=== PATIENT | male | born 1960 | race Caucasian/White ===

== ENCOUNTER 2021-03-04 18:21 | Inpatient (IN) | payer OTHER, MEDICAID ==
[~2021-03-04] VITALS: Ht 167.6 cm; Wt 83.9 kg
[2021-03-04 22:18] LABS: Basophils # (auto) 0.1 10 ^3/uL (0-0.2); Basophils % (auto) 0.6 % (0.0-2.0); Eosinophils # (auto) 0.3 10 ^3/uL (0-0.8); Hematocrit 52.7 % (41.0-53.0); Hemoglobin 17.9 g/dL (13.5-17.5); Lymphocytes # (auto) 2.4 10 ^3/uL (0.4-5.4); Lymphocytes % (auto) 18.2 % (10.0-50.0); Mean Corpuscular Hemoglobin 30.6 pg (28.0-32.0); Monocytes # (auto) 1.6 10 ^3/uL (0-1.3); Monocytes % (auto) 12.6 % (0.0-12.0); Neutrophils # (auto) 8.8 10 ^3/uL (1.6-8.6); Neutrophils % (auto) 66.6 % (37.0-80.0); Nucleated Red Blood Cells % 0.1 %; Red Blood Cells 5.86 10^6/uL (4.5-5.90); Red Cell Distribution Width 12.8 % (11.8-14.3); White Blood Cell 13.1 10^3/uL (4.4-10.8)
[2021-03-04 22:39] LABS: Albumin 3.5 g/dL (3.4-5.0); BUN/Creatinine Ratio 15.3; Calcium 9.2 mg/dL (8.5-10.1)
[2021-03-04 22:43] LABS: Bilirubin, Total 0.8 mg/dL (0.2-1.0); Total Protein 8.2 g/dL (6.4-8.2)
[2021-03-04] MEDS ORDERED: ASPirin 81 mg TAB PO ONE (23:15)
[2021-03-04] MEDS ORDERED: SODIUM CHLORIDE 0.9% 1,000 ML IVB ONE (23:15)
[2021-03-04] MEDS ORDERED: MORPHINE SULFATE 4 MG/ML SYR/VIAL IV ONE (23:30)
[2021-03-04] MEDS ORDERED: ONDANSETRON HCL 4 MG/2 ML VIAL IV ONE (23:30)
[2021-03-04] MEDS ORDERED: ENOXAPARIN SOD 80 MG/0.8ML SYRINGE SC ONE (23:30)
[2021-03-05] VITALS (14 sets, daily range): BP systolic 99–139; BP diastolic 63–96
[2021-03-05 00:16] LABS: INR 1.21 (0.9-1.15); Partial Thromboplastin Time 31.6 sec (23.6-33.0)
[2021-03-05] MEDS ORDERED: TEMAZEPAM 15 MG CAP PO PRN (03:30)
[2021-03-05] MEDS ORDERED: MORPHINE SULFATE INJECTION 2 MG/ML SYRG IV PRN (03:30)
[2021-03-05] MEDS ORDERED: ACETAMINOPHEN 325 MG TAB PO PRN (03:30)
[2021-03-05] MEDS ORDERED: NITROGLYCERIN 0.4 MG SL TAB SL PRN (03:30)
[2021-03-05] MEDS ORDERED: ONDANSETRON HCL 4 MG/2 ML VIAL IV PRN (03:30)
[2021-03-05] MEDS ORDERED: DEXTROSE (50%) 50ML SYRG IV PRN (03:30)
[2021-03-05] MEDS: ACCU-CHEK COMFORT CURVE STRIP VI SCH ×4 (08:01→21:46)
[2021-03-05] MEDS: InsuLIN REG 1unit/0.01ml Soln (100units/ml) SC SCH ×3 (08:42→21:45)
[2021-03-05] MEDS: buPROPion HCL 75 MG TAB PO SCH ×2 (08:42→19:01)
[2021-03-05] MEDS: CARVEDILOL 12.5 MG TAB PO SCH ×2 (08:42→21:44)
[2021-03-05] MEDS: ENOXAPARIN SOD 40 MG/0.4 ML SYRINGE SC SCH (08:43)
[2021-03-05] MEDS: LOSARTAN POTASSIUM 50 MG TAB PO SCH (08:43)
[2021-03-05] MEDS: PANTOPRAZOLE 40 MG TAB PO SCH (08:43)
[2021-03-05] MEDS ORDERED: ASPirin 81 mg TAB PO SCH (10:00)
[2021-03-05] MEDS ORDERED: NITROGLYCERIN 0.4 MG SL TAB SL ONE (10:00)
[2021-03-05] MEDS ORDERED: LIDOCAINE 2%HCL (LOCAL ANESTH.) INJ 20ML MDV ONE (12:18)
[2021-03-05] MEDS ORDERED: IOHEXOL 350 MG/ML 100ML IJ ONE (12:18)
[2021-03-05] MEDS ORDERED: ANGIOMAX 250 MG VIAL IV ONE (12:22)
[2021-03-05] MEDS ORDERED: HEPARIN SODIUM (PORCINE) 5000 UNITS/ML 1ML VIAL ONE (12:22)
[2021-03-05] MEDS ORDERED: VERAPAMIL 2.5MG/ML INJ 2ML VIAL IV ONE (12:23)
[2021-03-05] MEDS ORDERED: fentaNYL CITRATE 100 MCG/2 ML VL ONE (12:23)
[2021-03-05] MEDS ORDERED: MIDAZOLAM HCL 2MG/2ML 2ml VIAL (1mg/ml) ONE (12:23)
[2021-03-05] MEDS ORDERED: SODIUM CHL 0.9% 50 ML ONE (12:23)
[2021-03-05] MEDS ORDERED: IODIXANOL 320MG/ML 100ML BTL IV ONE (12:48)
[2021-03-05] MEDS ORDERED: CLOPIDOGREL 300 MG TAB ONE (13:13)
[2021-03-05] MEDS ORDERED: CHOL100029 PO (14:31)
[2021-03-05] MEDS ORDERED: IRBE150T49 PO (14:31)
[2021-03-05] MEDS ORDERED: METF-916 PO (14:31)
[2021-03-05] MEDS ORDERED: ASPI-543 PO (14:31)
[2021-03-05] MEDS ORDERED: LABE300T3 PO (14:31)
[2021-03-05] MEDS ORDERED: NICOTINE 21MG/24 HR TOPICAL PATCH TD ONE (15:30)
[2021-03-05 21:21] LABS: Urine Bacteria NONE SEEN /hpf (None Seen); Urine Blood Negative /uL (Negative); Urine Mucus FEW (None Seen); Urine WBC 1 /hpf (0 - 3)
[2021-03-05 21:24] LABS: Urine Specific Gravity > 1.050 (1.001-1.035)
[2021-03-05] MEDS ORDERED: ATORVASTATIN 20 MG TAB PO SCH ×2 (22:00)
[2021-03-06 05:00] VITALS: BP 122/72
[2021-03-06] MEDS: InsuLIN REG 1unit/0.01ml Soln (100units/ml) SC SCH ×2 (06:11→11:16)
[2021-03-06] MEDS: ACCU-CHEK COMFORT CURVE STRIP VI SCH ×2 (06:12→11:17)
[2021-03-06] MEDS: buPROPion HCL 75 MG TAB PO SCH (07:00)
[2021-03-06 07:12] LABS: Potassium 4.3 mmol/L (3.5-5.1)
[2021-03-06 07:14] LABS: Basophils # (auto) 0.1 10 ^3/uL (0-0.2); Basophils % (auto) 0.6 % (0.0-2.0); Eosinophils # (auto) 0.2 10 ^3/uL (0-0.8); Eosinophils % (auto) 1.8 % (0.0-7.0); Hemoglobin 16.5 g/dL (13.5-17.5); Lymphocytes # (auto) 2.6 10 ^3/uL (0.4-5.4); Lymphocytes % (auto) 24.3 % (10.0-50.0); Mean Corpuscular Hemoglobin 32.1 pg (28.0-32.0); Mean Corpuscular Volume 91.6 fL (80.0-100.0); Monocytes # (auto) 1.3 10 ^3/uL (0-1.3); Neutrophils # (auto) 6.5 10 ^3/uL (1.6-8.6); Neutrophils % (auto) 61.3 % (37.0-80.0); Nucleated Red Blood Cells % 0.1 %; Red Blood Cells 5.13 10^6/uL (4.5-5.90); Red Cell Distribution Width 13.4 % (11.8-14.3); White Blood Cell 10.6 10^3/uL (4.4-10.8)
[2021-03-06 07:25] LABS: Albumin 3.4 g/dL (3.4-5.0); BUN/Creatinine Ratio 16.2; Bilirubin, Total 1.2 mg/dL (0.2-1.0); Calcium 9.1 mg/dL (8.5-10.1); Total Protein 7.1 g/dL (6.4-8.2)
[2021-03-06] MEDS ORDERED: ATOR40TA52 PO (09:01)
[2021-03-06] MEDS ORDERED: CARV25TA PO (09:01)
[2021-03-06] MEDS ORDERED: CLOP75TA28 PO (09:01)
[2021-03-06] MEDS ORDERED: ASPirin 81 mg TAB PO SCH (10:00)
[2021-03-06] MEDS: LOSARTAN POTASSIUM 50 MG TAB PO SCH (10:00)
[2021-03-06] MEDS: CARVEDILOL 12.5 MG TAB PO SCH (10:00)
[2021-03-06] MEDS: PANTOPRAZOLE 40 MG TAB PO SCH (10:00)
[2021-03-06] MEDS: ENOXAPARIN SOD 40 MG/0.4 ML SYRINGE SC SCH (10:00)
[2021-03-06] MEDS ORDERED: NICOTINE 21MG/24 HR TOPICAL PATCH TD SCH (10:00)
[2021-03-06] MEDS ORDERED: CLOPIDOGREL BISULFATE 75 MG TAB PO SCH (10:00)
[2021-03-06 11:56] VITALS: BP 135/83
== END 2021-03-06 13:55 | disposition home or self-care (01) | DRG 247 ==
LOC: EDBD 18:21 → ER 18:24 → TELE 03-05 03:16 → TELE-WESTW 03-05 18:42
PROVIDERS: ADMIT Nurse Practitioner; ATTEND Internal Medicine
PROC: 027034Z Dilation of Coronary Artery, One Artery with Drug-eluting Intraluminal Device, Percutaneous Approach (ICD-10-PCS; principal; 2021-03-05)
PROC: 4A023N7 Measurement of Cardiac Sampling and Pressure, Left Heart, Percutaneous Approach (ICD-10-PCS; 2021-03-05)
PROC: B211YZZ Fluoroscopy of Multiple Coronary Arteries using Other Contrast (ICD-10-PCS; 2021-03-05)
PROC: B215YZZ Fluoroscopy of Left Heart using Other Contrast (ICD-10-PCS; 2021-03-05)
PROC: 4A033BC Measurement of Arterial Pressure, Coronary, Percutaneous Approach (ICD-10-PCS; 2021-03-05)
DX: I21.4 Non-ST elevation (NSTEMI) myocardial infarction (principal); E11.9 Type 2 diabetes mellitus without complications; I10 Essential (primary) hypertension; E78.5 Hyperlipidemia, unspecified; F12.90 Cannabis use, unspecified, uncomplicated; F17.210 Nicotine dependence, cigarettes, uncomplicated; H54.61 Unqualified visual loss, right eye, normal vision left eye; F41.9 Anxiety disorder, unspecified; F19.10 Other psychoactive substance abuse, uncomplicated; I25.10 Atherosclerotic heart disease of native coronary artery without angina pectoris; I25.5 Ischemic cardiomyopathy; Z79.82 Long term (current) use of aspirin; Z82.49 Family history of ischemic heart disease and other diseases of the circulatory system; Z98.61 Coronary angioplasty status; Z86.73 Personal history of transient ischemic attack (TIA), and cerebral infarction without residual deficits; Z20.822 Contact with and (suspected) exposure to COVID-19
CPT/HCPCS: 36415; 71045; 80053; 80061; 81001; 82962; 83036; 83735; 83880; 84443; 84484; 85025; 85379; 85610; 85730; 86850; 86900; 86901; 87426; 92928; 93005; 93306; 93458; 93571; 96361; 96374; 96375; 99152; C1874; G0378; J1815; J2250; J2405; Q9967

== ENCOUNTER 2021-08-17 07:50 | Inpatient (IN) | payer OTHER, MEDICAID ==
[~2021-08-17] VITALS: Ht 165.1 cm; Wt 77.0 kg
[~2021-08-17 07:50] MED LIST: ASPI-543 PO; ATOR40TA52 PO; CARV25TA PO; CHOL100029 PO; CLOP75TA28 PO; IRBE150T49 PO; METF-916 PO
[2021-08-17] MEDS ORDERED: methylPREDNISolone SOD SUCC 125 MG/2 ML VL IV ONE (08:45)
[2021-08-17] MEDS ORDERED: ALBUTEROL SULF 2.5 MG/0.5ML(0.5%) NEB SOLN NEB ONE (08:45)
[2021-08-17] MEDS ORDERED: IPRATROPIUM BROM 0.5 MG/2.5ML INH SOL NEB ONE (08:45)
[2021-08-17 09:08] LABS: Albumin 3.2 g/dL (3.4-5.0); Calcium 9.1 mg/dL (8.5-10.1); INR 1.18 (0.9-1.15); Potassium 4.8 mmol/L (3.5-5.1)
[2021-08-17 09:12] LABS: BUN/Creatinine Ratio 9.8; Bilirubin, Total 0.4 mg/dL (0.2-1.0)
[2021-08-17] MEDS ORDERED: AZITHROMYCIN 500MG/ 250ML 250 ML IV ONE (09:45)
[2021-08-17] MEDS ORDERED: FUROSEMIDE 40 MG/4 ML VIAL IV ONE (09:45)
[2021-08-17] MEDS ORDERED: cefTRIAXone 1GM/50ML D5W 50 ML IV ONE (09:45)
[2021-08-17 09:58] LABS: Basophils # (auto) 0.1 10 ^3/uL (0-0.2); Basophils % (auto) 0.5 % (0.0-2.0); Eosinophils # (auto) 0.4 10 ^3/uL (0-0.8); Eosinophils % (auto) 3.4 % (0.0-7.0); Hematocrit 45.2 % (41.0-53.0); Hemoglobin 14.9 g/dL (13.5-17.5); Lymphocytes # (auto) 4.6 10 ^3/uL (0.4-5.4); Lymphocytes % (auto) 39.2 % (10.0-50.0); Mean Corpuscular Hemoglobin 30.2 pg (28.0-32.0); Mean Corpuscular Hgb Conc. 32.9 g/dL (32.0-36.0); Mean Corpuscular Volume 91.9 fL (80.0-100.0); Monocytes # (auto) 0.8 10 ^3/uL (0-1.3); Monocytes % (auto) 6.6 % (0.0-12.0); Neutrophils # (auto) 5.9 10 ^3/uL (1.6-8.6); Neutrophils % (auto) 50.3 % (37.0-80.0); Nucleated Red Blood Cells % 0.4 %; Red Blood Cells 4.91 10^6/uL (4.5-5.90); Red Cell Distribution Width 15.4 % (11.8-14.3); White Blood Cell 11.7 10^3/uL (4.4-10.8)
[2021-08-17] MEDS ORDERED: IOHEXOL 350 MG/ML 100ML IJ ONE (10:35)
[2021-08-17 10:42] LABS: Lactic Acid w/Reflex 4.6 mmol/L (0.4-2.0)
[2021-08-17 11:40] LABS: Alcohol, Urine < 3.0 mg/dL (0-10); Amphetamine Screen, Urine NEGATIVE (NEGATIVE); Barbiturate Scree,Urine NEGATIVE (NEGATIVE); Benzodiazephine Screen, Urine NEGATIVE (NEGATIVE); Cannabinoid Screen, Urine NEGATIVE (NEGATIVE); Cocaine Screen, Urine NEGATIVE (NEGATIVE); Opiate Scree,Urine NEGATIVE (NEGATIVE); Phencyclidine Screen, Urine NEGATIVE (NEGATIVE)
[2021-08-17 12:01] LABS: Urine Bacteria NONE SEEN /hpf (None Seen); Urine Blood Negative /uL (Negative); Urine Specific Gravity 1.013 (1.001-1.035); Urine WBC 1 /hpf (0 - 3)
[2021-08-17] MEDS ORDERED: IPRATROPIUM BROM 0.5 MG/2.5ML INH SOL NEB PRN (12:15)
[2021-08-17] MEDS ORDERED: MORPHINE SULFATE INJECTION 2 MG/ML SYRG IV PRN (12:15)
[2021-08-17] MEDS ORDERED: ALBUTEROL SULF 2.5 MG/0.5ML(0.5%) NEB SOLN NEB PRN (12:15)
[2021-08-17] MEDS ORDERED: ONDANSETRON HCL 4 MG/2 ML VIAL IV PRN (12:15)
[2021-08-17] MEDS ORDERED: DEXTROSE (50%) 50ML SYRG IV PRN (12:15)
[2021-08-17] MEDS ORDERED: SODIUM CHLORIDE 0.9% 1,000 ML IV ONE (12:30)
[2021-08-17 12:44] LABS: Cholesterol 154 mg/dL (< 200)
[2021-08-17] MEDS ORDERED: ENOXAPARIN SOD 80 MG/0.8ML SYRINGE SC ONE (12:45)
[2021-08-17 12:47] LABS: HDL Cholesterol 69 mg/dL (40-59); LDL Cholesterol 59 mg/dL (< 100); Triglycerides 224 mg/dL (< 150)
[2021-08-17 13:42] LABS: INR 1.2 (0.9-1.15)
[2021-08-17 15:02] VITALS: BP 162/102
[2021-08-17 15:15] VITALS: BP 162/102
[2021-08-17] MEDS ORDERED: hydrALAZINE HCL 20 MG/ML VL IV PRN (15:30)
[2021-08-17 15:32] VITALS: BP 162/102
[2021-08-17] MEDS ORDERED: NITROGLYCERIN 0.4MG/HR TOPICAL PATCH TD ONE (16:00)
[2021-08-17] MEDS ORDERED: LABETALOL HCL 5 MG/ML 4ML SYRINGE IV ONE (16:00)
[2021-08-17] MEDS: InsuLIN REG 1unit/0.01ml Soln (100units/ml) SC SCH ×2 (17:05→21:59)
[2021-08-17] MEDS: ACCU-CHEK COMFORT CURVE STRIP VI SCH ×2 (17:05→21:46)
[2021-08-17 17:13] VITALS: BP 138/93
[2021-08-17] MEDS: metFORMIN HYDROCHLORIDE 500 MG TAB PO SCH (18:00)
[2021-08-17] MEDS: IPRATROPIUM BROM 0.5 MG/2.5ML INH SOL NEB SCH (18:09)
[2021-08-17] MEDS: ALBUTEROL SULF 2.5 MG/0.5ML(0.5%) NEB SOLN NEB SCH (18:09)
[2021-08-17] MEDS: methylPREDNISolone SOD SUCC 125 MG/2 ML VL IV SCH (21:51)
[2021-08-17] MEDS: ATORVASTATIN 20 MG TAB PO SCH (21:51)
[2021-08-17] MEDS: CARVEDILOL 12.5 MG TAB PO SCH (21:52)
[2021-08-17 22:00] VITALS: BP 134/87
[2021-08-18] VITALS (7 sets, daily range): BP systolic 112–140; BP diastolic 61–87
[2021-08-18] MEDS: ACCU-CHEK COMFORT CURVE STRIP VI SCH ×4 (05:49→21:45)
[2021-08-18] MEDS: InsuLIN REG 1unit/0.01ml Soln (100units/ml) SC SCH ×4 (05:49→21:45)
[2021-08-18] MEDS: IPRATROPIUM BROM 0.5 MG/2.5ML INH SOL NEB SCH ×3 (05:59→18:46)
[2021-08-18] MEDS: ALBUTEROL SULF 2.5 MG/0.5ML(0.5%) NEB SOLN NEB SCH ×3 (05:59→18:46)
[2021-08-18] MEDS: metFORMIN HYDROCHLORIDE 500 MG TAB PO SCH (08:06)
[2021-08-18] MEDS: cefTRIAXone 1GM/50ML D5W 50 ML IV SCH (08:06)
[2021-08-18] MEDS ORDERED: CLOPIDOGREL 300 MG TAB PO ONE (08:30)
[2021-08-18] MEDS ORDERED: CLOPIDOGREL BISULFATE 75 MG TAB PO SCH (10:00)
[2021-08-18] MEDS: ASPirin-EC 81 mg tab PO SCH (10:46)
[2021-08-18] MEDS: FUROSEMIDE 40 MG/4 ML VIAL IV SCH (10:46)
[2021-08-18] MEDS: ENOXAPARIN SOD 40 MG/0.4 ML SYRINGE SC SCH (10:47)
[2021-08-18] MEDS: CARVEDILOL 12.5 MG TAB PO SCH ×2 (10:47→21:41)
[2021-08-18] MEDS: AZITHROMYCIN 500MG/ 250ML 250 ML IV SCH (10:48)
[2021-08-18] MEDS: methylPREDNISolone SOD SUCC 125 MG/2 ML VL IV SCH (10:48)
[2021-08-18 13:36] LABS: Potassium 3.9 mmol/L (3.5-5.1)
[2021-08-18 13:38] LABS: BUN/Creatinine Ratio 14.5
[2021-08-18] MEDS: ATORVASTATIN 20 MG TAB PO SCH (21:40)
[2021-08-19] VITALS (15 sets, daily range): BP systolic 101–137; BP diastolic 62–75
[2021-08-19] MEDS: ALBUTEROL SULF 2.5 MG/0.5ML(0.5%) NEB SOLN NEB SCH ×3 (05:25→19:13)
[2021-08-19] MEDS: IPRATROPIUM BROM 0.5 MG/2.5ML INH SOL NEB SCH ×3 (05:25→19:13)
[2021-08-19 05:34] LABS: Basophils # (auto) 0 10 ^3/uL (0-0.2); Basophils % (auto) 0.2 % (0.0-2.0); Eosinophils # (auto) 0 10 ^3/uL (0-0.8); Hematocrit 38.7 % (41.0-53.0); Hemoglobin 12.9 g/dL (13.5-17.5); Lymphocytes # (auto) 0.9 10 ^3/uL (0.4-5.4); Lymphocytes % (auto) 6.1 % (10.0-50.0); Mean Corpuscular Hemoglobin 30.1 pg (28.0-32.0); Mean Corpuscular Hgb Conc. 33.3 g/dL (32.0-36.0); Mean Corpuscular Volume 90.3 fL (80.0-100.0); Monocytes # (auto) 0.8 10 ^3/uL (0-1.3); Monocytes % (auto) 5.3 % (0.0-12.0); Neutrophils # (auto) 13.2 10 ^3/uL (1.6-8.6); Neutrophils % (auto) 88.4 % (37.0-80.0); Red Blood Cells 4.29 10^6/uL (4.5-5.90); Red Cell Distribution Width 15.5 % (11.8-14.3)
[2021-08-19 05:47] LABS: INR 1.22 (0.9-1.15); Partial Thromboplastin Time 26.8 sec (23.6-33.0)
[2021-08-19 05:58] LABS: Calcium 9.4 mg/dL (8.5-10.1); Potassium 3.4 mmol/L (3.5-5.1)
[2021-08-19 06:01] LABS: BUN/Creatinine Ratio 20.2
[2021-08-19] MEDS: InsuLIN REG 1unit/0.01ml Soln (100units/ml) SC SCH ×4 (06:02→21:51)
[2021-08-19] MEDS: ACCU-CHEK COMFORT CURVE STRIP VI SCH ×4 (06:03→21:57)
[2021-08-19] MEDS: ASPirin-EC 81 mg tab PO SCH (09:15)
[2021-08-19] MEDS: CLOPIDOGREL BISULFATE 75 MG TAB PO SCH (09:15)
[2021-08-19] MEDS: CARVEDILOL 12.5 MG TAB PO SCH ×2 (09:16→21:44)
[2021-08-19] MEDS ORDERED: IODIXANOL 320MG/ML 100ML BTL IV ONE (09:45)
[2021-08-19] MEDS ORDERED: LIDOCAINE 2%HCL (LOCAL ANESTH.) INJ 10ml MDV ONE (09:45)
[2021-08-19] MEDS ORDERED: ANGIOMAX 250 MG VIAL IV ONE (09:56)
[2021-08-19] MEDS ORDERED: HEPARIN SODIUM (PORCINE) 5000 UNITS/ML 1ML VIAL ONE (09:57)
[2021-08-19] MEDS ORDERED: MIDAZOLAM HCL 2MG/2ML 2ml VIAL (1mg/ml) ONE (09:57)
[2021-08-19] MEDS ORDERED: VERAPAMIL 2.5MG/ML INJ 2ML VIAL IV ONE (09:57)
[2021-08-19] MEDS ORDERED: SODIUM CHL 0.9% 0 ML ONE (09:57)
[2021-08-19] MEDS ORDERED: fentaNYL CITRATE 100 MCG/2 ML VL ONE (09:57)
[2021-08-19] MEDS: FUROSEMIDE 40 MG/4 ML VIAL IV SCH (10:00)
[2021-08-19] MEDS: ENOXAPARIN SOD 40 MG/0.4 ML SYRINGE SC SCH (10:00)
[2021-08-19] MEDS: cefTRIAXone 1GM/50ML D5W 50 ML IV SCH (12:08)
[2021-08-19] MEDS: AZITHROMYCIN 500MG/ 250ML 250 ML IV SCH (12:43)
[2021-08-19] MEDS: ATORVASTATIN 20 MG TAB PO SCH (21:43)
[2021-08-20 04:58] VITALS: BP 110/78
[2021-08-20 05:28] LABS: Basophils # (auto) 0 10 ^3/uL (0-0.2); Basophils % (auto) 0.3 % (0.0-2.0); Eosinophils # (auto) 0.1 10 ^3/uL (0-0.8); Eosinophils % (auto) 0.8 % (0.0-7.0); Hematocrit 37.9 % (41.0-53.0); Hemoglobin 12.9 g/dL (13.5-17.5); Lymphocytes # (auto) 2.7 10 ^3/uL (0.4-5.4); Lymphocytes % (auto) 27.9 % (10.0-50.0); Mean Corpuscular Hemoglobin 30.8 pg (28.0-32.0); Mean Corpuscular Volume 90.7 fL (80.0-100.0); Monocytes # (auto) 0.9 10 ^3/uL (0-1.3); Monocytes % (auto) 9.4 % (0.0-12.0); Neutrophils # (auto) 5.9 10 ^3/uL (1.6-8.6); Neutrophils % (auto) 61.6 % (37.0-80.0); Nucleated Red Blood Cells % 0.1 %; Red Blood Cells 4.18 10^6/uL (4.5-5.90); Red Cell Distribution Width 15.9 % (11.8-14.3); White Blood Cell 9.5 10^3/uL (4.4-10.8)
[2021-08-20 05:44] LABS: Calcium 8.6 mg/dL (8.5-10.1)
[2021-08-20 05:47] LABS: BUN/Creatinine Ratio 27.9
[2021-08-20 05:49] LABS: Bilirubin, Total 0.4 mg/dL (0.2-1.0); Total Protein 6.6 g/dL (6.4-8.2)
[2021-08-20] MEDS: InsuLIN REG 1unit/0.01ml Soln (100units/ml) SC SCH ×2 (06:34→11:28)
[2021-08-20] MEDS: ACCU-CHEK COMFORT CURVE STRIP VI SCH ×2 (06:34→11:21)
[2021-08-20] MEDS: ALBUTEROL SULF 2.5 MG/0.5ML(0.5%) NEB SOLN NEB SCH ×2 (07:01→13:05)
[2021-08-20] MEDS: IPRATROPIUM BROM 0.5 MG/2.5ML INH SOL NEB SCH ×2 (07:01→13:05)
[2021-08-20 08:15] VITALS: BP 112/74
[2021-08-20 08:30] VITALS: BP 112/74
[2021-08-20] MEDS: cefTRIAXone 1GM/50ML D5W 50 ML IV SCH (08:37)
[2021-08-20] MEDS: CARVEDILOL 12.5 MG TAB PO SCH (09:56)
[2021-08-20] MEDS: ASPirin-EC 81 mg tab PO SCH (09:56)
[2021-08-20] MEDS: CLOPIDOGREL BISULFATE 75 MG TAB PO SCH (09:56)
[2021-08-20] MEDS: AZITHROMYCIN 500MG/ 250ML 250 ML IV SCH (09:56)
[2021-08-20] MEDS: FUROSEMIDE 40 MG/4 ML VIAL IV SCH (09:56)
[2021-08-20] MEDS: ENOXAPARIN SOD 40 MG/0.4 ML SYRINGE SC SCH (09:56)
[2021-08-20] MEDS ORDERED: LEVO750T64 PO (11:04)
[2021-08-20] MEDS ORDERED: FURO20TA3 PO (11:06)
[2021-08-20 12:10] VITALS: BP 106/67
[2021-08-20 12:51] VITALS: BP 106/67
== END 2021-08-20 14:05 | disposition home or self-care (01) | DRG 280 ==
LOC: EDBD 07:50 → ER 07:50 → EAST 11:21 → ER 14:40 → TELE-EAST 15:00
PROVIDERS: ADMIT Registered Nurse; ATTEND Internal Medicine
PROC: 5A09357 Assistance with Respiratory Ventilation, Less than 24 Consecutive Hours, Continuous Positive Airway Pressure (ICD-10-PCS; 2021-08-17)
PROC: B211YZZ Fluoroscopy of Multiple Coronary Arteries using Other Contrast (ICD-10-PCS; principal; 2021-08-19)
DX: I21.4 Non-ST elevation (NSTEMI) myocardial infarction (principal); J18.9 Pneumonia, unspecified organism; I50.43 Acute on chronic combined systolic (congestive) and diastolic (congestive) heart failure; J96.01 Acute respiratory failure with hypoxia; N17.9 Acute kidney failure, unspecified; F10.10 Alcohol abuse, uncomplicated; I25.10 Atherosclerotic heart disease of native coronary artery without angina pectoris; F32.A Depression, unspecified; E78.5 Hyperlipidemia, unspecified; Z20.822 Contact with and (suspected) exposure to COVID-19; I11.0 Hypertensive heart disease with heart failure; E11.9 Type 2 diabetes mellitus without complications; F41.9 Anxiety disorder, unspecified; F17.210 Nicotine dependence, cigarettes, uncomplicated; Z82.49 Family history of ischemic heart disease and other diseases of the circulatory system; Z83.3 Family history of diabetes mellitus; Z86.73 Personal history of transient ischemic attack (TIA), and cerebral infarction without residual deficits; Z91.19 Patient's noncompliance with other medical treatment and regimen
CPT/HCPCS: 36415; 36600; 71045; 71275; 80048; 80053; 80061; 80307; 80320; 81001; 82805; 82962; 83036; 83605; 83880; 84484; 85025; 85379; 85610; 85730; 87040; 87070; 87205; 93005; 93306; 93454; 94640; 94660; 96361; 96368; 96375; 99152; 99291; G0378; J0696; J1815; J2001; J2250; J3490; Q9967

== ENCOUNTER 2023-12-25 06:45 | Inpatient (IN) | payer MEDICARE, MEDICAID ==
[~2023-12-25] VITALS: Ht 170.2 cm; Wt 73.8 kg
[~2023-12-25 06:45] MED LIST changes: +CARV-217 PO; -CARV25TA PO; +FURO20TA3 PO; +LEVO750T40 PO; +METF-1145 PO; -METF-916 PO; +VENL150C58 PO
[2023-12-25 07:22] LABS: Basophils # (auto) 0 10 ^3/uL (0-0.2); Basophils % (auto) 0.5 % (0.0-2.0); Eosinophils # (auto) 0.2 10 ^3/uL (0-0.8); Eosinophils % (auto) 3.1 % (0.0-7.0); Hematocrit 43.6 % (41.0-53.0); Hemoglobin 14.9 g/dL (13.5-17.5); Lymphocytes # (auto) 1.6 10 ^3/uL (0.4-5.4); Lymphocytes % (auto) 20.1 % (10.0-50.0); Mean Corpuscular Hemoglobin 30.8 pg (28.0-32.0); Mean Corpuscular Hgb Conc. 34.1 g/dL (32.0-36.0); Mean Corpuscular Volume 90.3 fL (80.0-100.0); Monocytes # (auto) 0.7 10 ^3/uL (0-1.3); Monocytes % (auto) 9.1 % (0.0-12.0); Neutrophils # (auto) 5.4 10 ^3/uL (1.6-8.6); Neutrophils % (auto) 67.2 % (37.0-80.0); Platelet Count (auto) 344 10^3/uL (140-450); Red Blood Cells 4.82 10^6/uL (4.5-5.90); Red Cell Distribution Width 14.9 % (11.8-14.3)
[2023-12-25 07:25] VITALS: PULSE 74; RESP 18; O2SAT 95
[2023-12-25 07:51] LABS: Chloride 107 mmol/L (98-107); Potassium 4.9 mmol/L (3.5-5.1); Sodium 139 mmol/L (136-145)
[2023-12-25 07:52] LABS: Anion Gap 2 (5-15); Carbon Dioxide 30 mmol/L (20-30)
[2023-12-25 07:53] LABS: Calcium 9.6 mg/dL (8.7-10.4)
[2023-12-25 07:58] LABS: BUN/Creatinine Ratio 8.6 (10.0-20.0); Blood Urea Nitrogen 6 mg/dL (9-23); Glucose 128 mg/dL (74-106)
[2023-12-25] MEDS: ENOXAPARIN SOD 80 MG/0.8ML SYRINGE SC ONE (08:37)
[2023-12-25] MEDS: FUROSEMIDE 40 MG/4 ML VIAL IV ONE (08:37)
[2023-12-25] MEDS: IOHEXOL 350 MG/ML 100ML IJ ONE (08:55)
[2023-12-25] MEDS ORDERED: HYDROcodone-ACET 5/325MG TAB PO PRN (10:45)
[2023-12-25] MEDS ORDERED: HYDROmorphone HCL 2 MG/ML VL/or syr IV PRN (10:45)
[2023-12-25] MEDS ORDERED: DEXTROSE (50%) 50ML SYRG IV PRN (10:45)
[2023-12-25] MEDS ORDERED: ACETAMINOPHEN 325 MG TAB PO PRN (10:45)
[2023-12-25] MEDS ORDERED: ONDANSETRON HCL 4 MG/2 ML VIAL IV PRN (10:45)
[2023-12-25] MEDS ORDERED: DOCUSATE SOD 100 MG CAP PO PRN (10:45)
[2023-12-25] MEDS: PANTOPRAZOLE 40 MG/10 ML VIAL INJ IV SCH (10:50)
[2023-12-25] MEDS: cefTRIAXone 1GM/50ML D5W 50 ML IV SCH (10:50)
[2023-12-25] MEDS: ACCU-CHEK COMFORT CURVE STRIP VI SCH (11:21)
[2023-12-25] MEDS: InsuLIN REG 1unit/0.01ml Soln (100units/ml) SC SCH (11:21)
[2023-12-25] MEDS: AZITHROMYCIN 500MG/ 250ML 250 ML IV SCH (11:28)
[2023-12-25] MEDS: hydrALAZINE HCL 20 MG/ML VL IV PRN (11:45)
[2023-12-25] MEDS: SODIUM CHLOR 0.9% PF (SALINE LOCK) 10ML VIAL/SYR IV SCH (14:06)
[2023-12-25 17:45] VITALS: BP 165/90; PULSE 77; RESP 18; TEMP 98.1; O2SAT 96
[2023-12-25 18:13] VITALS: PULSE 82; RESP 18; O2SAT 96
[2023-12-25 18:15] VITALS: BP 165/90; PULSE 77; RESP 18; TEMP 98.1; O2SAT 96
[2023-12-25] MEDS: ATORVASTATIN 20 MG TAB PO SCH (18:35)
[2023-12-25] MEDS: FUROSEMIDE 40 MG/4 ML VIAL IV SCH (18:36)
[2023-12-25 20:00] VITALS: BP 152/77; PULSE 70; PULSE 74; PULSE 77; RESP 18; RESP 20; TEMP 98; O2SAT 95; O2SAT 98
[2023-12-25] MEDS: CARVEDILOL 12.5 MG TAB PO SCH (22:17)
[2023-12-26] VITALS (8 sets, daily range): BP systolic 111–154; BP diastolic 63–86; PULSE 66–77; RESP 15–20; TEMP 97.8–98.2; O2SAT 94–98
[2023-12-26 06:35] LABS: Basophils # (auto) 0 10 ^3/uL (0-0.2); Basophils % (auto) 0.4 % (0.0-2.0); Eosinophils # (auto) 0.2 10 ^3/uL (0-0.8); Eosinophils % (auto) 2.6 % (0.0-7.0); Hematocrit 49.7 % (41.0-53.0); Lymphocytes # (auto) 2.3 10 ^3/uL (0.4-5.4); Lymphocytes % (auto) 24.9 % (10.0-50.0); Mean Corpuscular Hemoglobin 30.6 pg (28.0-32.0); Mean Corpuscular Hgb Conc. 34.2 g/dL (32.0-36.0); Mean Corpuscular Volume 89.5 fL (80.0-100.0); Monocytes % (auto) 10.6 % (0.0-12.0); Neutrophils # (auto) 5.6 10 ^3/uL (1.6-8.6); Neutrophils % (auto) 61.5 % (37.0-80.0); Nucleated Red Blood Cells % 0.1 %; Platelet Count (auto) 377 10^3/uL (140-450); Red Blood Cells 5.55 10^6/uL (4.5-5.90); Red Cell Distribution Width 14.9 % (11.8-14.3); White Blood Cell 9.1 10^3/uL (4.4-10.8)
[2023-12-26 06:44] LABS: Alanine Aminotransferase 20 U/L (7-40); Albumin 4.6 g/dL (3.2-4.8); Alkaline Phosphatase 129 U/L (46-116); Anion Gap 10 (5-15); Aspartate Aminotransferase 20 U/L (13-40); Blood Urea Nitrogen 10 mg/dL (9-23); Calcium 10.6 mg/dL (8.7-10.4); Carbon Dioxide 31 mmol/L (20-30); Chloride 98 mmol/L (98-107); Glucose 136 mg/dL (74-106); Potassium 3.9 mmol/L (3.5-5.1); Sodium 139 mmol/L (136-145)
[2023-12-26 06:45] LABS: Bilirubin, Total 0.9 mg/dL (0.2-1.0)
[2023-12-26] MEDS: CHOLECALCIFEROL (VITD3) 1,000UNIT=25mCg TAB PO SCH (10:40)
[2023-12-26] MEDS: ASPirin-EC 81 mg tab PO SCH (10:41)
[2023-12-26] MEDS: LOSARTAN POTASSIUM 50 MG TAB PO SCH (10:41)
[2023-12-26] MEDS: CLOPIDOGREL BISULFATE 75 MG TAB PO SCH (10:41)
[2023-12-26] MEDS: ENOXAPARIN SOD 40 MG/0.4 ML SYRINGE SC SCH (10:42)
[2023-12-26 11:35] LABS: Triglycerides 132 mg/dL (< 150)
[2023-12-26 11:36] LABS: LDL Cholesterol 70 mg/dL (< 100)
[2023-12-26 11:37] LABS: Cholesterol 135 mg/dL (< 200); HDL Cholesterol 41 mg/dL (40-59)
[2023-12-26] MEDS: SACUBITRIL-VALSARTAN 24mg/26mg TAB PO SCH (21:39)
[2023-12-27] VITALS (9 sets, daily range): BP systolic 105–140; BP diastolic 70–86; PULSE 61–88; RESP 15–20; TEMP 97.3–98.1; O2SAT 95–97
[2023-12-27 07:00] LABS: Basophils # (auto) 0 10 ^3/uL (0-0.2); Basophils % (auto) 0.5 % (0.0-2.0); Eosinophils # (auto) 0.3 10 ^3/uL (0-0.8); Eosinophils % (auto) 2.9 % (0.0-7.0); Hematocrit 49.2 % (41.0-53.0); Hemoglobin 17.1 g/dL (13.5-17.5); Lymphocytes # (auto) 2.6 10 ^3/uL (0.4-5.4); Lymphocytes % (auto) 29.7 % (10.0-50.0); Mean Corpuscular Hemoglobin 30.9 pg (28.0-32.0); Mean Corpuscular Hgb Conc. 34.8 g/dL (32.0-36.0); Mean Corpuscular Volume 88.9 fL (80.0-100.0); Monocytes % (auto) 11.2 % (0.0-12.0); Neutrophils % (auto) 55.7 % (37.0-80.0); Nucleated Red Blood Cells % 0.2 %; Platelet Count (auto) 368 10^3/uL (140-450); Red Blood Cells 5.54 10^6/uL (4.5-5.90); Red Cell Distribution Width 14.3 % (11.8-14.3); White Blood Cell 8.9 10^3/uL (4.4-10.8)
[2023-12-27 07:08] LABS: Alanine Aminotransferase 20 U/L (7-40); Alkaline Phosphatase 110 U/L (46-116); Anion Gap 9 (5-15); BUN/Creatinine Ratio 16.9 (10.0-20.0); Blood Urea Nitrogen 14 mg/dL (9-23); Calcium 9.9 mg/dL (8.7-10.4); Carbon Dioxide 30 mmol/L (20-30); Chloride 97 mmol/L (98-107); Glucose 132 mg/dL (74-106); Potassium 3.6 mmol/L (3.5-5.1); Sodium 136 mmol/L (136-145)
[2023-12-27 07:09] LABS: Albumin 4.4 g/dL (3.2-4.8); Aspartate Aminotransferase 23 U/L (13-40); Bilirubin, Total 0.7 mg/dL (0.2-1.0); Total Protein 7.5 g/dL (5.7-8.2)
[2023-12-27 09:09] LABS: Hepatitis B Surface Antigen Negative (Negative)
[2023-12-27 09:30] LABS: Hepatitis A Ab IgM Negative; Hepatitis B Core IgM Negative
[2023-12-27 09:31] LABS: Hepatitis C Antibody Negative (Negative)
[2023-12-27] MEDS ORDERED: SACU1TAB PO (10:22)
[2023-12-27] MEDS ORDERED: AZIT-43 PO (10:22)
[2023-12-27] MEDS ORDERED: CARV-216 PO (10:22)
[2023-12-27] MEDS ORDERED: SPIR25TA PO (10:22)
[2023-12-27] MEDS ORDERED: EMPA1TAB PO (10:22)
[2023-12-27] MEDS: SPIRONOLACTONE 25 MG TAB PO ONE (11:34)
[2023-12-28] VITALS (9 sets, daily range): BP systolic 103–126; BP diastolic 68–77; PULSE 63–81; RESP 15–18; TEMP 97.7–98.4; O2SAT 93–96
[2023-12-28 05:36] LABS: Rapid Influenza A Negative (Negative); Rapid Influenza B Negative (Negative)
[2023-12-28 05:43] LABS: COVID19 ANTIGEN SOFIA FIA NEGATIVE (NEGATIVE)
[2023-12-28 06:10] LABS: Basophils # (auto) 0.1 10 ^3/uL (0-0.2); Eosinophils # (auto) 0.3 10 ^3/uL (0-0.8); Monocytes # (auto) 1.1 10 ^3/uL (0-1.3); Neutrophils # (auto) 5.3 10 ^3/uL (1.6-8.6); Nucleated Red Blood Cells % 0.1 %; Red Cell Distribution Width 14.4 % (11.8-14.3)
[2023-12-28 06:12] LABS: Basophils % (auto) 1.1 % (0.0-2.0); Eosinophils % (auto) 2.9 % (0.0-7.0); Hemoglobin 17.6 g/dL (13.5-17.5); Lymphocytes # (auto) 2.9 10 ^3/uL (0.4-5.4); Lymphocytes % (auto) 29.5 % (10.0-50.0); Mean Corpuscular Hemoglobin 30.9 pg (28.0-32.0); Mean Corpuscular Hgb Conc. 35.1 g/dL (32.0-36.0); Monocytes % (auto) 11.6 % (0.0-12.0); Neutrophils % (auto) 54.9 % (37.0-80.0); Platelet Count (auto) 349 10^3/uL (140-450); Red Blood Cells 5.69 10^6/uL (4.5-5.90); White Blood Cell 9.7 10^3/uL (4.4-10.8)
[2023-12-28 06:16] LABS: Alanine Aminotransferase 23 U/L (7-40); Albumin 4.1 g/dL (3.2-4.8); Alkaline Phosphatase 105 U/L (46-116); Anion Gap 8 (5-15); Aspartate Aminotransferase 24 U/L (13-40); BUN/Creatinine Ratio 16.3 (10.0-20.0); Bilirubin, Total 0.7 mg/dL (0.2-1.0); Blood Urea Nitrogen 14 mg/dL (9-23); Calcium 10.1 mg/dL (8.7-10.4); Carbon Dioxide 25 mmol/L (20-30); Chloride 101 mmol/L (98-107); Glucose 134 mg/dL (74-106); Potassium 3.7 mmol/L (3.5-5.1); Sodium 134 mmol/L (136-145); Total Protein 7.2 g/dL (5.7-8.2)
[2023-12-28 07:21] LABS: Urine Bacteria None Seen /hpf (None Seen)
[2023-12-28 07:37] LABS: Urine Blood Negative /uL (Negative); Urine Clarity Clear (Clear); Urine Color Light-Yellow (Yellow); Urine Hyaline Cast FEW /lpf (0 - 2); Urine Protein, UAD Negative (Negative); Urine Specific Gravity 1.011 (1.001-1.035); Urine Urobilinogen Normal (Negative); Urine WBC <1 /hpf (0 - 3); Urine pH 6.5 (5.0-9.0)
[2023-12-28 07:51] LABS: Amphetamine Screen, Urine Neg (NEGATIVE); Barbiturate Scree,Urine Neg (NEGATIVE); Benzodiazephine Screen, Urine Neg (NEGATIVE); Cocaine Screen, Urine Neg (NEGATIVE); Opiate Scree,Urine Neg (NEGATIVE); Phencyclidine Screen, Urine Neg (NEGATIVE)
[2023-12-28 07:52] LABS: Cannabinoid Screen, Urine Neg (NEGATIVE)
[2023-12-28] MEDS ORDERED: REGADENOSON 0.4 MG/5 ML SYRG IV ONE (09:23)
[2023-12-28] MEDS: REGADENOSON 0.4 MG/5 ML SYRG IV ONE (09:51)
[2023-12-28] MEDS: SPIRONOLACTONE 25 MG TAB PO SCH (11:36)
[2023-12-28] MEDS: EMPAGLIFLOZIN 10 MG TAB PO SCH (11:38)
== END 2023-12-28 20:50 | disposition home or self-care (01) | DRG 177 ==
LOC: ER 06:45 → EDBD 06:45 → EDUNIT# 06:45 → TELE 10:46 → TELE-CENTR 17:41
PROVIDERS: ADMIT Internal Medicine Pulmonary Disease; ATTEND Emergency Medicine
DX: J15.69 Pneumonia due to other Gram-negative bacteria (principal); I50.23 Acute on chronic systolic (congestive) heart failure; J96.01 Acute respiratory failure with hypoxia; I11.0 Hypertensive heart disease with heart failure; J15.9 Unspecified bacterial pneumonia; E11.65 Type 2 diabetes mellitus with hyperglycemia; I25.9 Chronic ischemic heart disease, unspecified; I49.3 Ventricular premature depolarization; Z20.822 Contact with and (suspected) exposure to COVID-19; F41.9 Anxiety disorder, unspecified; F17.210 Nicotine dependence, cigarettes, uncomplicated; E78.5 Hyperlipidemia, unspecified; I25.5 Ischemic cardiomyopathy; Z86.73 Personal history of transient ischemic attack (TIA), and cerebral infarction without residual deficits; Z83.3 Family history of diabetes mellitus; Z82.49 Family history of ischemic heart disease and other diseases of the circulatory system; Z98.61 Coronary angioplasty status; Z79.82 Long term (current) use of aspirin; Z79.899 Other long term (current) drug therapy; I16.0 Hypertensive urgency
CPT/HCPCS: 36415; 71045; 71275; 76705; 78452; 80048; 80053; 80061; 80074; 80307; 81001; 82962; 83036; 83735; 83880; 84443; 84484; 85025; 85379; 87040; 87426; 87804; 93005; 93017; 93306; 93970; 99291; G0378; J1815; J2470

== ENCOUNTER 2024-08-30 20:08 | Inpatient (IN) | payer MEDICAID, MEDICARE ==
[~2024-08-30] VITALS: Ht 170.2 cm; Wt 77.5 kg
[~2024-08-30 20:08] MED LIST changes: +AZIT-43 PO; +CARV-216 PO; -CARV-217 PO; +CARV6.2551 PO; +CLOP75TA70 PO; +EMPA1TAB PO; +FURO20TA4 PO; -IRBE150T49 PO; -LEVO750T40 PO; +SACU1TAB PO; +SPIR25TA PO
--- NOTE | 2024-08-30 20:16 | ED.PDOC ---
SOB-HPI HPI Comments 64 year old male presents to the ED via EMS presents to the ED with a chief complaint of shortness of breath onset today (08/30/24). Per EMS, patient was experiencing shortness of breath, chest pain, rates pain 6/10, O2 sat was 70% RA, given breathing treatment, placed on C-PAP, O2 increased to 96%. HR was 120, BP 175/103. PMHx COPD, DM, HTN, CVA, anxiety. Denies fever, chills, abdominal pain, nausea, vomiting, diarrhea. No other symptoms or modifying factors present at this time. Time Seen by MD: 20:10 Primary Care Provider: DELLA Reviewed notes: Medications, Allergies Information Source: Patient, Emergency Med Personnel Mode of Arrival: EMS Severity: Moderate Timing: Hours Duration: Since onset Context: At Rest PE Risk Factors: None History of: COPD, Anxiety Prehospital treatment: 12 Lead EKG, Breathing Tx, C-Pap Modifying Factors: Nothing Associated Signs and Symptoms: Chest Pain Quality: Sharp Radiation: No Radiation Location: Chest (L) Past Medical History PAST MEDICAL HISTORY: Anxiety, COPD, CVA, DM, HTN Surgical History: PTCA Family History Family History: Family hx of heart miroslava Social History Smoker: Cigarettes Alcohol: Occasionally Drugs: Marijuana Lives In: Home Constitutional: denies: chills, diaphoresis, fatigue, fever, malaise, sweats, weakness, others EENTM: denies: blurred vision, double vision, ear bleeding, ear discharge, ear drainage, ear pain, ear ringing, eye pain, eye redness, hearing loss, mouth pain, mouth swelling, nasal discharge, nose bleeding, nose congestion, nose pain, photophobia, tearing, throat pain, throat swelling, voice changes, others Respiratory: reports: shortness of breath; denies: cough, hemoptysis, orthopnea, SOB at rest, SOB with excertion, stridor, wheezing, others Cardiovascular: reports: chest pain; denies: dizzy spells, diaphoresis, Dyspnea on exertion, edema, irregular heart beat, left arm pain, lightheadedness, palpitations, PND, syncope, others Gastrointestinal: denies: abdomen distended, abdominal pain, blood streaked bowels, constipated, diarrhea, dysphagia, difficulty swallowing, hematemesis, melena, nausea, poor appetite, poor fluid intake, rectal bleeding, rectal pain, vomiting, others Genitourinary: denies: burning, dysuria, flank pain, frequency, hematuria, incontinence, penile discharge, penile sore, pain, testicle pain, testicle swelling, urgency, others Neurological: denies: dizziness, fainting, headache, left sided numbness, left sided weakness, numbness, paresthesia, pre-existing deficit, right sided numbness, right sided weakness, seizure, speech problems, tingling, tremors, weakness, others Musculoskeletal: denies: back pain, gout, joint pain, joint swelling, muscle pain, muscle stiffness, neck pain, others Integumetry: denies: bruises, change in color, change in hair/nails, dryness, laceration, lesions, lumps, rash, wounds, others Allergic/Immunocompromised: denies: Difficulty Healing, Frequent Infections, Hives, Itching, others Hematologic/Lymphatic: denies: anemia, blood clots, easy bleeding, easy bruising, swollen glands, others Endocrine: denies: excessive hunger, excessive sweating, excessive thirst, excessive urination, flushing, intolerance to cold, intolerance to heat, unexplained weight gain, unexplained weight loss, others Psychiatric: denies: anxiety, bipolar disorder, depression, hopeless, panic disorder, schizophrenia, sleepless, suicidal, others All Other Systems: Reviewed and Negative Physical Exam General Appearance: No Apparent Distress, Normal HEENT: Normal ENT Inspection, Pharynx Normal, TMs Normal Neck: Full Range of Motion, Non-Tender, Normal, Normal Inspection Respiratory: Chest Non-Tender, Lungs Clear, No Accessory Muscle Use, No Resp iratory Distress, Normal Breath Sounds Cardiovascular: No Edema, No JVD, No Murmur, No Gallop, Normal Peripheral Pulses, Regular Rate/Rhythm Breast Exam: Deferred Gastrointestinal: No Organomegaly, Non Tender, No Pulsatile Mass, Normal Bowel Sounds, Soft Genitalia: Deferred Pelvic: Deferred Rectal: Deferred Extremities: No calf tenderness, Normal capillary refill, Normal inspection, Normal range of motion, Non-tender, No pedal edema Musculoskeletal : Apperance: Normal Neurologic: Alert, school counsellor II-XII nml as Tested, No Motor Deficits, Normal Affect, Normal Mood, No Sensory Deficits Cerebellar Function: Normal Reflexes: Normal Skin: Dry, Normal Color, Warm Lymphatic: No Adenopathy Was a procedure done? Was a procedure done?: No Differential Dx Differential Diagnosis: CHF, COPD, Hypertension, Myocardial infarction, Pneumonia, URI X-Ray, Labs, Meds, VS Vital Signs Date Time Temp Pulse Resp B/P (MAP) Pulse Ox O2 Delivery O2 Flow Rate FiO2 08/30/24 20:24 109 08/30/24 20:10 97.0 120 28 175/103 (127) 96 97.0 08/30/24 20:10 96 Bi-Pap+ 20 100 100 Lab Test 08/30/24 21:23 08/30/24 20:35 Range/Units Troponin I High Sensitivity Pending 110 *H </=54 ng/L White Blood Count 12.9 H 4.4-10.8 10^3/uL Red Blood Count 5.32 4.5-5.90 10^6/uL Hemoglobin 16.7 13.5-17.5 g/dL Hematocrit 49.9 41.0-53.0 % Mean Corpuscular Volume 93.7 80.0-100.0 fL Mean Corpuscular Hemoglobin 31.3 28.0-32.0 pg Mean Corpuscular Hemoglobin Concent 33.5 32.0-36.0 g/dL Red Cell Distribution Width 13.8 11.8-14.3 % Platelet Count 248 140-450 10^3/uL Mean Platelet Volume 10.0 6.9-10.8 fL Neutrophils (%) (Auto) 74.9 37.0-80.0 % Lymphocytes (%) (Auto) 16.4 10.0-50.0 % Monocytes (%) (Auto) 6.9 0.0-12.0 % Eosinophils (%) (Auto) 1.3 0.0-7.0 % Basophils (%) (Auto) 0.5 0.0-2.0 % Neutrophils # (Auto) 9.7 H 1.6-8.6 10 ^3/uL Lymphocytes # (Auto) 2.1 0.4-5.4 10 ^3/uL Monocytes # (Auto) 0.9 0-1.3 10 ^3/uL Eosinophils # (Auto) 0.2 0-0.8 10 ^3/uL Basophils # (Auto) 0.1 0-0.2 10 ^3/uL Nucleated Red Blood Cells 0.2 % Sodium Level 141 136-145 mmol/L Potassium Level 3.5 3.5-5.1 mmol/L Chloride Level 105 98-107 mmol/L Carbon Dioxide Level 26 20-31 mmol/L Anion Gap 10 5-15 Blood Urea Nitrogen 8 L 9-23 mg/dL Creatinine 1.11 0.700-1.30 mg/dL Glomerular Filtration Rate Calc 74 >90 mL/min BUN/Creatinine Ratio 7.2 L 10.0-20.0 Serum Glucose 226 H 74-106 mg/dL Calcium Level 9.7 8.7-10.4 mg/dL B-Type Natriuretic Peptide 751.51 0-100 pg/mL [facility] [id number] [place] [address] Ph: [phone] DIAGNOSTIC IMAGING Diagnostic Imaging Report : [id number] Signed PATIENT: TORI MCCONNELL ACCT: [id number] UNIT: [id number] : 1960 LOC: ER ROOM / BED: / AGE / SEX: 64 / M ADM STATUS: REG ER SERVICE 14 ORDERING PHYSICIAN: JASEN SMITH MD PROCEDURE(s): CXRP - CHEST PORTABLE REASON: sob ORDER NUMBER(s): [id number], ACCESSION NUMBER(s): [id number] CHEST RADIOGRAPH Indication: sob Technique: Single frontal view of the chest was obtained Comparison: XY CHEST PORTABLE on DOS: 12/25/23, CHEST XRAY 1 VIEW on DOS: 08/20/21, CXR1 on DOS: 08/20/21 FINDINGS: Lines and Tubes: None Lungs: Diffuse interstitial prominence. Hyperinflation of the lungs. Pleura: No effusion. No pneumothorax. Cardiomediastinal contours: Heart size is within normal limits with mild atherosclerotic calcification and uncoiling of the aorta. Bones: No acute osseous abnormality. IMPRESSION: Pulmonary vascular congestion. Underlying bilateral lower lung zone infectious process can not be excluded. ATED BY: KAROLINA BERTRAND DO DICTATED DATE/TIME: 08/30/242057 SIGNED BY: KAROLINA BERTRAND DO SIGNED DATE/TIME: 08/30/242057 CC: Time of 1ST Reevaluation: 20:40 Reevaluation 1ST: Unchanged Patient Education/Counseling: Diagnosis, Treatment, Prognosis Family Education/Counseling: No Family Present Additional Information The following tests were ordered, and results were reviewed by me: BNP, BMP, CBC, TROP -x3, EKG, XY CHEST Additional Information was gathered from interviewing the following independent historians: EMS I reviewed and agreed with the following test results read by other providers: XY CHEST I discussed treatment and results with medical personnel and: patient Comprehensive systems review obtained and negative except for what is stated in the HPI. Departure 1 Departure Time of Disposition: 21:53 (Patient presented with shortness of breath that was concerning for possible STEMI, ACS, CHF, PE, Pneumonia, Muscle Strain, COPD, Dissection. Data: 1. I ordered and reviewed the result of at least 3 labs in cluding a CBC, BMP, and Troponin. 2. I independently interpreted the following tests: EKG which shows left ventricular hypertrophy and Chest X-ray which shows pulmonary vascular congestion.Risk:This patient has a high risk of morbidity due to further diagnostic testing or treatment and may suffer from an acute cardiac or respiratory disorder. Workup reveals likely an acute on chronic CHF exacerbation and patient should be admitted for further workup and possible expert consultation. ) Impression: Primary Impression: Acute on chronic systolic (congestive) heart failure Additional Impression: Acute respiratory distress Disposition: ADMITTED INPATIENT Admit to: Tele Condition: Guarded Critical Care Note Critical Care Time?: Yes Critical care comment: Acute respiratory distress Authorized and Performed by: Jasen Smith MD Total critical care time: Approximately 48 minutes Due to a high probability of clinically significant, life threatening deterioration, the patient required my highest level of preparedness to intervene emergently and I personally spent this critical care time directly and personally managing the patient. This critical care time included obtaining a history; examining the patient; pulse oximetry; ordering and review of studies; arranging urgent treatment with development of a management plan; evaluation of patient's response to treatment; frequent reassessment; and, discussions with other providers. This critical care time was performed to assess and manage the high probability of imminent, life-threatening deterioration that could result in multi-organ failure. It was exclusive of separately billable procedures and treating other patients and teaching time. Please see my other sections and the rest of the note for further information on patient assessment and treatment. Stability Stability form required: No Heart Score Heart Score: Heart Score Response (Comments) Value History Moderate Suspicious 1 EKG Repolarization Disturb 1 Age >65 2 Risk Factors >3 or Hx ASHD 2 Troponin >3 x's Normal limit 2 Total 8 I personally scribed for JASEN SMITH MD ([email or web address]) on 08/30/24 at 20:16. Electronically submitted by Arlyn Carlos ([email or web address]). I personally scribed for JASEN SMITH MD ([email or web address]) on 08/30/24 at 20:43. Electronically submitted by Arlyn aCrlos ([email or web address]). I personally scribed for JASEN SMITH MD ([email or web address]) on 08/30/24 at 21:16. Electronically submitted by Arlyn Carlos ([email or web address]). I personally scribed for JASEN SMITH MD ([email or web address]) on 08/30/24 at 21:35. Electronically submitted by Arlyn Carlos ([email or web address]). JASEN SMITH MD Aug 30, 2024 20:16
[2024-08-30 20:55] VITALS: PULSE 18; RESP 17; O2SAT 94
[2024-08-30 20:59] LABS: Basophils # (auto) 0.1 10 ^3/uL (0-0.2); Basophils % (auto) 0.5 % (0.0-2.0); Chloride 105 mmol/L (98-107); Eosinophils # (auto) 0.2 10 ^3/uL (0-0.8); Eosinophils % (auto) 1.3 % (0.0-7.0); Hematocrit 49.9 % (41.0-53.0); Hemoglobin 16.7 g/dL (13.5-17.5); Lymphocytes # (auto) 2.1 10 ^3/uL (0.4-5.4); Lymphocytes % (auto) 16.4 % (10.0-50.0); Mean Corpuscular Hemoglobin 31.3 pg (28.0-32.0); Mean Corpuscular Hgb Conc. 33.5 g/dL (32.0-36.0); Mean Corpuscular Volume 93.7 fL (80.0-100.0); Monocytes # (auto) 0.9 10 ^3/uL (0-1.3); Monocytes % (auto) 6.9 % (0.0-12.0); Neutrophils # (auto) 9.7 10 ^3/uL (1.6-8.6); Neutrophils % (auto) 74.9 % (37.0-80.0); Nucleated Red Blood Cells % 0.2 %; Platelet Count (auto) 248 10^3/uL (140-450); Red Blood Cells 5.32 10^6/uL (4.5-5.90); Red Cell Distribution Width 13.8 % (11.8-14.3); Sodium 141 mmol/L (136-145); White Blood Cell 12.9 10^3/uL (4.4-10.8)
[2024-08-30 21:00] LABS: Anion Gap 10 (5-15); Carbon Dioxide 26 mmol/L (20-31)
[2024-08-30 21:01] LABS: Calcium 9.7 mg/dL (8.7-10.4)
--- NOTE | 2024-08-30 21:01 | DVH ---
CHEST RADIOGRAPH Indication: sob Technique: Single frontal view of the chest was obtained Comparison: XY CHEST PORTABLE on DOS: 12/25/23, CHEST XRAY 1 VIEW on DOS: 08/20/21, CXR1 on DOS: 2 FINDINGS: Lines and Tubes: None Lungs: Diffuse interstitial prominence. Hyperinflation of the lungs. Pleura: No effusion. No pneumothorax. Cardiomediastinal contours: Heart size is within normal limits with mild atherosclerotic calcificatio n and uncoiling of the aorta. Bones: No acute osseous abnormality. IMPRESSION: Pulmonary vascular congestion. Underlying bilateral lower lung zone infectious process can not be exc luded.
[2024-08-30 21:06] LABS: BUN/Creatinine Ratio 7.2 (10.0-20.0)
[2024-08-30 21:38] LABS: Blood Urea Nitrogen 8 mg/dL (9-23); Glucose 226 mg/dL (74-106); Potassium 3.5 mmol/L (3.5-5.1)
[2024-08-30] MEDS: FUROSEMIDE 40 MG/4 ML VIAL IV ONE (22:00)
[2024-08-30] MEDS: CARVEDILOL 12.5 MG TAB PO ONE (22:30)
[2024-08-30] MEDS ORDERED: ONDANSETRON HCL 4 MG/2 ML VIAL IV PRN (22:30)
[2024-08-30] MEDS ORDERED: DEXTROSE (50%) 50ML SYRG IV PRN (22:30)
[2024-08-30] MEDS ORDERED: NITROGLYCERIN 0.4 MG SL TAB SL PRN (22:30)
--- NOTE | 2024-08-30 23:09 | DVHHP2 ---
History of Present Illness Reason for Visit: Shortness of the breath History of Present Illness 64-year-old male presents for evaluation of shortness for breath. Patient reports a one day history of worsening shortness for breath with associated chest tightness and a nonproductive cough. Patient reports becoming severely winded with minimal exertion. He reports not being able to lay flat. Denies fever or chills. No nausea or vomiting. No other acute complaints reported. Past Medical History Diabetes mellitus, hypertension, CVA, COPD, CHF Past Surgical History PTCA Family History Heart disease Smoke: <1 pack per day ALCOHOL: occassional Drugs: Marijuana Lives: with Family Review of Systems Review of Systems Review of systems are currently negative otherwise addressed in HPI. Allergies: Coded Allergies: NO KNOWN ALLERGIES (Unverified , 07/12/14) Medications Current Medications Medications Dose Ordered Sig/Danay Route Start Time Stop Time Status Last Admin Dose Admin Furosemide 20 mg BIDD IV 08/31/24 06:00 Aspirin 162 mg DAILY PO 08/31/24 10:00 Atorvastatin Calcium 40 mg HS PO 08/31/24 22:00 Carvedilol 25 mg Q12HR PO 08/31/24 10:00 Clopidogrel Bisulfate 75 mg DAILY PO 08/31/24 10:00 Sacubitril/ Valsartan 1 tab BID PO 08/31/24 10:00 Spironolactone 25 mg DAILY PO 08/31/24 10:00 Diagnostic Test (Pha) 1 strip ACHS 08/31/24 07:00 Insulin Human Regular ACHS SC 08/31/24 07:00 Dextrose 50 ml UD PRN IV 08/30/24 22:30 Ondansetron HCl 4 mg Q4HP PRN IV 08/30/24 22:30 Enoxaparin Sodium 40 mg DAILY SC 08/31/24 10:00 Acetaminophen 650 mg Q6HP PRN PO 08/30/24 22:30 Nitroglycerin 0.4 mg Q5MINP PRN SL 08/30/24 22:30 Morphine Sulfate 2 mg Q30M PRN IV 08/30/24 22:30 Exam Vital Signs Vital Signs Date Time Temp Pulse Resp B/P (MAP) Pulse Ox O2 Delivery O2 Flow Rate FiO2 08/30/24 22:00 129/89 08/30/24 20:24 109 08/30/24 20:10 97.0 28 96 97.0 08/30/24 20:10 Bi-Pap+ 20 100 100 Exam Gen: 64-year-old male in mild distress Skin: Warm, dry, normal color and texture, no rash. HEENT: Normocephalic atraumatic, mucous membranes moist and pink. Neck: Cervical and supraclavicular nodes normal without enlargement, trachea is midline, thyroid gland is normal without masses. Pulmonary: Clear to auscultation and percussion bilaterally. Cardiac: Regular rate and rhythm. No murmur Abdomen: Soft, nontender, nondistended, bowel sounds present all 4 quadrants, no guarding, no rigidity, no organomegaly. Extremities: No cyanosis, clubbing, no edema Neuro: Cranial nerves II through XII grossly intact, normal affect and speech, no focal motor deficits. Labs/Xrays ORDERING PHYSICIAN: ALEXANDREA RAMIREZ MD PROCEDURE(s): ECIDC - ECHO 2D MODE CARDIAC DOP REASON: chf exacerbation ORDER NUMBER(s): [id number], ACCESSION NUMBER(s): [id number] APPROVED REPORT EXAM: Two-dimensional and M-mode echocardiogram with Doppler and color Doppler. Blood Pressure: 179/100 mmHg INDICATION CHF exacerbation RISK FACTORS Height: 5'7", Weight: 176 DIMENSIONS LVDd 4.6 (3.8-5.7cm) LA (2D) 4.0 (1.9-4.0cm) Aortic Root 3.1 (2.0- 3.7cm) LVDs 3.7 (2.5-4.0cm) LA (MM) (1.9-4.0cm) Aortic Cusp Exc 1.3 (1.5-2.0cm) EF (%) 40.0 (55-70%) Rt. Atrium 3.7 (1.9-4.0cm) Asc. Aorta cm IVSd 1.3 (0.7-1.1cm) RV (D) 3.8 (1.8-2.4cm) PWd 1.2 (0.7-1.1cm) Mitral Valve Mitral Mitral Stenosis E wave 1.16m/s MV Mean GR. mmHg A wave 0.93m/s MV Peak GR. mmHg E/A ratio 1.2 2D MVA cm2 DECEL Time 152ms PRESS 1/2 Time ms Aortic Valve Aortic Valve Aortic Stenosis V1 0.98m/s AO Mean GR. 6mmHg V2 1.80m/s AO Peak GR. 13mmHg LVOT Diameter 2.2 (1.8-2.4cm) Doppler MANDIE 2.07cm2 Pulmonic Valve V2 0.90m/s Tricuspid Valve TR Velocity 3.17m/s RVSP 43mmHg Other Information Technically limited study due to body habitus. Conclusion Sinus rhythm. Left atrial enlargement. LV enlargement. Concentric LVH. Mild dilatation of the sinuses of Valsalva. Moderate aortic sclerosis without severe stenosis. Mild mitral annular calcification. Tricuspid and pulmonic structurally normal. Left ventricular function is diminished. EF is about 35-40% with anterior hypokinesis to akinesis. Mild pulmonic insufficiency. Effusion no pericardial effusion masses vegetations discernible. SIGNED BY: FRANCESCA KOO Sr., MD SIGNED DATE/TIME: 12/25/23 7353 CC: ORDERING PHYSICIAN: JASEN GRIMALDO MD PROCEDURE(s): CXRP - CHEST PORTABLE REASON: sob ORDER NUMBER(s): [id number], ACCESSION NUMBER(s): [id number] CHEST RADIOGRAPH Indication: sob Technique: Single frontal view of the chest was obtained Comparison: XY CHEST PORTABLE on DOS: 12/25/23, CHEST XRAY 1 VIEW on DOS: 08/20/21, CXR1 on DOS: 08/20/21 FINDINGS: Lines and Tubes: None Lungs: Diffuse interstitial prominence. Hyperinflation of the lungs. Pleura: No effusion. No pneumothorax. Cardiomediastinal contours: Heart size is within normal limits with mild atherosclerotic calcification and uncoiling of the aorta. Bones: No acute osseous abnormality. IMPRESSION: Pulmonary vascular congestion. Underlying bilateral lower lung zone infectious process can not be excluded. Labs Test 08/30/24 21:23 08/30/24 20:35 Range/Units Troponin I High Sensitivity 214 *H </=54 ng/L White Blood Count 12.9 H 4.4-10.8 10^3/uL Red Blood Count 5.32 4.5-5.90 10^6/uL Hemoglobin 16.7 13.5-17.5 g/dL Hematocrit 49.9 41.0-53.0 % Mean Corpuscular Volume 93.7 80.0-100.0 fL Mean Corpuscular Hemoglobin 31.3 28.0-32.0 pg Mean Corpuscular Hemoglobin Concent 33.5 32.0-36.0 g/dL Red Cell Distribution Width 13.8 11.8-14.3 % Platelet Count 248 140-450 10^3/uL Mean Platelet Volume 10.0 6.9-10.8 fL Neutrophils (%) (Auto) 74.9 37.0-80.0 % Lymphocytes (%) (Auto) 16.4 10.0-50.0 % Monocytes (%) (Auto) 6.9 0.0-12.0 % Eosinophils (%) (Auto) 1.3 0.0-7.0 % Basophils (%) (Auto) 0.5 0.0-2.0 % Neutrophils # (Auto) 9.7 H 1.6-8.6 10 ^3/uL Lymphocytes # (Auto) 2.1 0.4-5.4 10 ^3/uL Monocytes # (Auto) 0.9 0-1.3 10 ^3/uL Eosinophils # (Auto) 0.2 0-0.8 10 ^3/uL Basophils # (Auto) 0.1 0-0.2 10 ^3/uL Nucleated Red Blood Cells 0.2 % Sodium Level 141 136-145 mmol/L Potassium Level 3.5 3.5-5.1 mmol/L Chloride Level 105 98-107 mmol/L Carbon Dioxide Level 26 20-31 mmol/L Anion Gap 10 5-15 Blood Urea Nitrogen 8 L 9-23 mg/dL Creatinine 1.11 0.700-1.30 mg/dL Glomerular Filtration Rate Calc 74 >90 mL/min BUN/Creatinine Ratio 7.2 L 10.0-20.0 Serum Glucose 226 H 74-106 mg/dL Calcium Level 9.7 8.7-10.4 mg/dL B-Type Natriuretic Peptide 751.51 0-100 pg/mL Assessment/Plan Assessment/Plan Assessment Acute on chronic congestive heart failure Elevated troponin, demand ischemia Diabetes mellitus Accelerated hypertension Plan Admit the patient to telemetry to the hospitalist MANDY Otero Resume home medications Continue treatment per orders. Plan discussed with: Patient My Orders Orders - KARLENE EDUARDO Procedure Category Date Status Time Furosemide Injection PHA 08/31/24 In Process (Lasix Injection) 06:00 Aspirin Tablet PHA 08/31/24 In Process 10:00 Atorvastatin (Lipitor) PHA 08/31/24 In Process 22:00 Carvedilol Tablet PHA 08/31/24 In Process (Coreg Tablet) 10:00 Clopidogrel Bisulfate PHA 08/31/24 In Process (Plavix) 10:00 Sacubitril-Valsartan PHA 08/31/24 In Process (Entresto 24-26 Mg 10:00 Spironolactone PHA 08/31/24 In Process (Aldactone) 10:00 Basic Metabolic Panel LAB 08/31/24 Verified 04:00 Glucose Blood PHA 08/31/24 In Process (Accu-Chek Comfort 07:00 Insulin R (Human) PHA 08/31/24 In Process (Insulin R) 07:00 Dextrose 50% Syringe PHA 08/30/24 In Process 22:30 Admit ADMIT 08/30/24 Transmitted 22:26 Ondansetron Hcl PHA 08/30/24 In Process (Zofran) 22:30 Enoxaparin Sodium PHA 08/31/24 In Process (Lovenox) 10:00 Cardiac DIET 08/31/24 Transmitted Diet-2gna,Lofat,Lochol Breakfast Condition: Fair [facility] 08/30/24 In Process 22:26 Acetaminophen Tablet PHA 08/30/24 In Process (Tylenol Tablet) 22:30 Bedrest With Bathroom [facility] 08/30/24 In Process Privileg 22:26 Nitroglycerin PHA 08/30/24 In Process Sublingual (Ntrostat 22:30 Morphine Sulfate PHA 08/30/24 In Process Injection 22:30 Stat Ekg For Chest [facility] 08/30/24 In Process Pain 22:26 Notify Of Changes [facility] 08/30/24 In Process From Base 22:26 Office Support Associate For [facility] 08/30/24 In Process 24 Hours 22:26 Emergency Dysrhythmia [facility] 08/30/24 In Process Protocol 22:26 Rhythm Strips Once [facility] 08/30/24 In Process Every Shift 22:26 Oxygen By Nasal RT 08/30/24 Transmitted Cannula 22:26 Date of Service: Aug 30, 2024 Billing Provider: KARLENE EDUARDO Common Visit Codes: 07923-[id number] INP/OBS CARE (HIGH) KARLENE EDUARDO Aug 30, 2024 23:09
[2024-08-30 23:41] LABS: Urine Bacteria None Seen /hpf (None Seen)
[2024-08-30 23:54] LABS: Urine Blood Negative /uL (Negative); Urine Clarity Clear (Clear); Urine Color Light-Yellow (Yellow); Urine Hyaline Cast FEW /lpf (0 - 2); Urine Protein, UAD 1+ (Negative); Urine Specific Gravity 1.008 (1.001-1.035); Urine Squamous Epithelial Cell FEW /hpf (<5); Urine Urobilinogen Normal (Negative); Urine WBC 2 /HPF (0-3)
[2024-08-31] VITALS (15 sets, daily range): BP systolic 93–115; BP diastolic 56–70; PULSE 71–88; RESP 16–20; TEMP 98.2–98.9; O2SAT 92–100
[2024-08-31 01:23] LABS: INR 1.11 (0.9-1.15); Prothrombin Time 11.6 sec (9.3-11.8)
[2024-08-31] MEDS ORDERED: HEPARIN DRIP/D5W 100UNITS/ML 250 ML IV SCH (03:30)
[2024-08-31] MEDS: HEPARIN SODIUM (PORCINE) 5000 UNITS/ML 1ML VIAL IV ONE (03:30)
[2024-08-31] MEDS: ACETAMINOPHEN 325 MG TAB PO PRN (03:34)
[2024-08-31] MEDS: HEPARIN DRIP/D5W 100UNITS/ML 250 ML IV SCH ×2 (04:31→11:51)
[2024-08-31 04:57] LABS: Basophils # (auto) 0.1 10 ^3/uL (0-0.2); Basophils % (auto) 0.7 % (0.0-2.0); Eosinophils # (auto) 0.1 10 ^3/uL (0-0.8); Eosinophils % (auto) 0.5 % (0.0-7.0); Hematocrit 45.1 % (41.0-53.0); Hemoglobin 15.5 g/dL (13.5-17.5); Lymphocytes # (auto) 1.9 10 ^3/uL (0.4-5.4); Lymphocytes % (auto) 16.4 % (10.0-50.0); Mean Corpuscular Hemoglobin 31.8 pg (28.0-32.0); Mean Corpuscular Hgb Conc. 34.4 g/dL (32.0-36.0); Mean Corpuscular Volume 92.4 fL (80.0-100.0); Monocytes # (auto) 1.5 10 ^3/uL (0-1.3); Monocytes % (auto) 12.9 % (0.0-12.0); Neutrophils # (auto) 7.9 10 ^3/uL (1.6-8.6); Neutrophils % (auto) 69.5 % (37.0-80.0); Nucleated Red Blood Cells % 0.1 %; Platelet Count (auto) 232 10^3/uL (140-450); Red Blood Cells 4.88 10^6/uL (4.5-5.90); Red Cell Distribution Width 13.8 % (11.8-14.3); White Blood Cell 11.4 10^3/uL (4.4-10.8)
[2024-08-31 05:12] LABS: INR 1.14 (0.9-1.15); Partial Thromboplastin Time 26.8 SEC (24.5-34.5); Prothrombin Time 11.9 sec (9.3-11.8)
[2024-08-31 05:32] LABS: Chloride 104 mmol/L (98-107); Potassium 4.4 mmol/L (3.5-5.1); Sodium 140 mmol/L (136-145)
[2024-08-31 05:33] LABS: Anion Gap 5 (5-15); Calcium 9.9 mg/dL (8.7-10.4); Carbon Dioxide 31 mmol/L (20-31)
[2024-08-31 05:38] LABS: BUN/Creatinine Ratio 8.5 (10.0-20.0); Blood Urea Nitrogen 9 mg/dL (9-23)
[2024-08-31 05:41] LABS: Glucose 144 mg/dL (74-106)
[2024-08-31] MEDS: FUROSEMIDE 20 MG/2 ML VIAL IV SCH (06:20)
[2024-08-31] MEDS: ACCU-CHEK COMFORT CURVE STRIP VI SCH (06:24)
[2024-08-31] MEDS: InsuLIN REG 1unit/0.01ml Soln (100units/ml) SC SCH (06:26)
[2024-08-31] MEDS: ASPirin 81 mg TAB PO SCH (09:38)
[2024-08-31] MEDS: SPIRONOLACTONE 25 MG TAB PO SCH (09:38)
[2024-08-31] MEDS: CLOPIDOGREL BISULFATE 75 MG TAB PO SCH (09:39)
[2024-08-31] MEDS: CARVEDILOL 12.5 MG TAB PO SCH (09:39)
[2024-08-31] MEDS: SACUBITRIL-VALSARTAN 24mg/26mg TAB PO SCH (09:39)
[2024-08-31] MEDS ORDERED: ENOXAPARIN SOD 40 MG/0.4 ML SYRINGE SC SCH ×2 (10:00)
[2024-08-31 10:15] LABS: INR 1.18 (0.9-1.15); Partial Thromboplastin Time 36.2 SEC (24.5-34.5); Prothrombin Time 12.3 sec (9.3-11.8)
--- NOTE | 2024-08-31 11:51 | DVHPN2 ---
Reviewed: Care Plan, H&P, Labs, Medications, Previous Orders, Radiology Changes from previous H/P or p: No Changes Objective Vitals Vital Signs Date Time Temp Pulse Resp B/P (MAP) Pulse Ox O2 Delivery O2 Flow Rate FiO2 08/31/24 09:39 81 110/70 08/31/24 08:38 98.6 19 94 98.6 08/31/24 08:00 Nasal Cannula* 5 40 Intake/Output Intake and Output 08/31/24 07:00 Intake Total 240 ml Balance 240 ml Intake Oral 240 ml Medications Current Medications Medications Dose Ordered Sig/Danay Route Start Time Stop Time Status Last Admin Dose Admin Aspirin 162 mg DAILY PO 08/31/24 10:00 08/31/24 09:38 162 MG Atorvastatin Calcium 40 mg HS PO 08/31/24 22:00 Carvedilol 25 mg Q12HR PO 08/31/24 10:00 08/31/24 09:39 25 MG Clopidogrel Bisulfate 75 mg DAILY PO 08/31/24 10:00 08/31/24 09:39 75 MG Sacubitril/ Valsartan 1 tab BID PO 08/31/24 10:00 08/31/24 09:39 1 TAB Spironolactone 25 mg DAILY PO 08/31/24 10:00 08/31/24 09:38 25 MG Diagnostic Test (Pha) 1 strip ACHS 08/31/24 07:00 08/31/24 10:57 1 STRIP Insulin Human Regular ACHS SC 08/31/24 07:00 08/31/24 06:26 3 UNITS Dextrose 50 ml UD PRN IV 08/30/24 22:30 Ondansetron HCl 4 mg Q4HP PRN IV 08/30/24 22:30 Acetaminophen 650 mg Q6HP PRN PO 08/30/24 22:30 08/31/24 09:38 650 MG Nitroglycerin 0.4 mg Q5MINP PRN SL 08/30/24 22:30 Morphine Sulfate 2 mg Q30M PRN IV 08/30/24 22:30 Heparin Sodium/ Dextrose 250 ml @ 8.46 mls/hr Q24H IV 08/31/24 03:30 UNV Heparin Sodium/ Dextrose 250 ml @ 10.5 mls/hr [id number] IV 08/31/24 11:45 Furosemide 40 mg BIDD IV 08/31/24 12:00 UNV Laboratory Results Laboratory Tests 08/31/24 04:45 Chemistry Test 08/30/24 20:35 08/31/24 04:45 Calcium Level 9.7 mg/dL (8.7-10.4) 9.9 mg/dL (8.7-10.4) Coagulation Test 08/30/24 23:20 08/31/24 04:45 08/31/24 08:57 Prothrombin Time 11.6 sec (9.3-11.8) 11.9 sec (9.3-11.8) H 12.3 sec (9.3-11.8) H Prothrombin Time INR 1.11 (0.9-1.15) 1.14 (0.9-1.15) 1.18 (0.9-1.15) H Activated Partial Thromboplast Time 26.0 SEC (24.5-34.5) 26.8 SEC (24.5-34.5) 36.2 SEC (24.5-34.5) H D-Dimer, Quantitative 1.66 mg/L FEU (0.0-0.49) H Cardiac Markers Test 08/30/24 20:35 B-Type Natriuretic Peptide 751.51 pg/mL (0-100) Urinalysis Test 08/30/24 23:30 Urine Color Light-yellow (Yellow) Urine Clarity Clear (Clear) Urine pH 6.0 (5.0-9.0) Urine Specific [place] 1.008 (1.001-1.035) Urine Protein 1+ (Negative) H Urine Ketones Negative (Negative) Urine Blood Negative /uL (Negative) Urine Nitrite Negative (Negative) Urine Bilirubin Negative (Negative) Urine Urobilinogen Normal mg/dL (Negative) Urine Leukocyte Esterase Negative /uL (Negative) Urine RBC <1 /hpf (0 - 3) Urine Microscopic WBC 2 /HPF (0-3) Urine Squamous Epithelial Cells Few /hpf (<5) Urine Bacteria None seen /hpf (None Seen) Urine Hyaline Casts Few /lpf (0 - 2) Urine Glucose Trace mg/dL (Normal) Labs and/or images reviewed: Labs reviewed by me, Image(s) reviewed by me Assessment/Plan Assessment/Plan Acute hypoxic respiratory failure: Oxygen by nasal cannula Non ST-elevation NM with a troponin of 1.4 K: Treatment per ACS protocol cardiology consult with Dr. Washington Congestive heart failure exacerbation BNP 151: Lasix echocardiogram Uncontrolled diabetes: Insulin sliding scale Secondary to pneumonia: Blood cultures Possible community-acquired pneumonia: Rocephin azithromycin Hypertension History of CVA Acute COPD exacerbation History of NM status post PTCA and stents 4 yrs ago History of smoking more than 30 years, quit one year back Chronic current alcohol abuse: Banana bag Rapid flu test pending COVID test pending Elevated D-dimer 1.66: Venous ultrasound CT chest angiogram ordered Lipid panel pending TSH pending PCP Dr. Bernal Time spent 75 minutes Patient is full code Advanced care planning time 20 minutes Plan discussed with: Patient My Orders Orders - WAN ALFONSO MD Procedure Category Date Status Time Rapid Influenza A&B LAB 08/31/24 Logged 11:40 Covid19 Antigen Jessi LAB 08/31/[address] Angio Chest CT 08/31/24 Logged Contrast 11:41 Bilat Lower Dvt US 08/31/24 Logged 11:41 Lipid Panel LAB 08/31/24 Logged 11:42 Thyroid Stimulating LAB 08/31/24 Logged Hormone 11:42 * Cardiology Consult CONS 08/31/24 Transmitted 11:43 Furosemide Injection PHA 08/31/24 Transmitted (Lasix Injection) 12:00 Date of Service: August 31, 2024 Billing Provider: WAN ALFONSO MD Common Visit Codes: [id number] CARE 30-74 MIN WAN ALFONSO MD August 31, 2024 11:51
[2024-08-31] MEDS: IOHEXOL 350 MG/ML 100ML IJ ONE (11:54)
[2024-08-31 12:11] LABS: Triglycerides 122 mg/dL (< 150)
[2024-08-31 12:12] LABS: LDL Cholesterol 68 mg/dL (< 100)
[2024-08-31 12:13] LABS: Cholesterol 147 mg/dL (< 200); HDL Cholesterol 56 mg/dL (40-59)
[2024-08-31] MEDS: FUROSEMIDE 20 MG/2 ML VIAL IV ONE (12:15)
[2024-08-31] MEDS: cefTRIAXone 1GM/50ML D5W 50 ML IV ONE (13:10)
--- NOTE | 2024-08-31 13:10 | CONS ---
Pharmacy Clinical Information: HEP RATE INCREASED FROM 8.5 ML/HR TO 10.5 ML/HR SINCE APTT = 36.2 (@0857 ON 08/31). NEXT APTT DALY @1800 08/31 PER RX PROTOCOL REPEATED ORDER BACK OF 10.5 ML/HR BY DALI CHAVEZ RN PHARMACIST August 31, 2024 13:10
--- NOTE | 2024-08-31 13:38 | DVH ---
Bilateral lower extremity venous duplex Clinical History: Pain; Elevated D-dimer rule out DVT Comparison: US BILAT LOWER DVT on DOS: 12/27/23 Technique: Duplex Doppler evaluation of the deep venous systems of both lower extremities from the common femora l veins to the popliteal veins including color Doppler and spectral/pulsed waveform analysis was perf ormed. Findings: RIGHT SIDE: The common femoral vein demonstrates appropriate compressibility and waveform variability. There is compressibility/patency of the great saphenous vein at the proximal thigh. The femoral vein demonstrates appropriate compressibility and waveform variability. The deep femoral vein demonstrates appropriate compressibility and waveform variability. The popliteal vein demonstrates appropriate compressibility and waveform variability. There is normal compressibility at the tibioperoneal trunk. LEFT SIDE: The common femoral vein demonstrates appropriate compressibility and waveform variability. There is compressibility/patency of the great saphenous vein at the proximal thigh. The femoral vein demonstrates appropriate compressibility and waveform variability. The deep femoral vein demonstrates appropriate compressibility and waveform variability. The popliteal vein demonstrates appropriate compressibility and waveform variability. There is normal compressibility at the tibioperoneal trunk. Impression: No right or left femoropopliteal venous thrombosis.
--- NOTE | 2024-08-31 13:59 | DVHSR ---
APPROVED REPORT EXAM: Two-dimensional and M-mode echocardiogram with Doppler and color Doppler. Blood Pressure: 110/70 mmHg INDICATION CHF exacerbation RISK FACTORS Height: 67, Weight: 155 DIMENSIONS LVDd5.0 (3.8-5.7cm)LA (2D)4.2 (1.9-4.0cm)Aortic Root3.3 (2.0-3.7cm) LVDs4.2 (2.5-4.0cm)LA (MM) (1.9-4.0cm)Aortic Cusp Exc0.7 (1.5-2.0cm) EF (%) 35.0 (55-70%)Rt. Atrium3.9 (1.9-4.0cm)Asc. Aorta cm Mitral Valve MitralMitral Stenosis E wave0.88m/sMV Mean GR.mmHg A wave0.83m/sMV Peak GR.47mmHg E/A ratio1.12D MVAcm2 DECEL [id number] 1/2 [id number] IVRTmsDop MVA4.55cm2 Aortic Valve Aortic ValveAortic Stenosis V10.84m/Tamiko Mean GR.4mmHg V21.50m/Tamiko Peak GR.9mmHg LVOT Diameter1.8 (1.8-2.4cm)Doppler AVA1.42cm2 Pulmonic Valve V20.73m/s Tricuspid Valve TR Velocity1.73m/s [id number] Other Information Technically limited study due to body habitus. Conclusion lvef 40% dilated LV apex is hypokinetic RV not well seen Left atrium enlarged aortic sclerosis, restricted motion noted, gradient is not elevated however, clinical correlate
[2024-08-31] MEDS: AZITHROMYCIN 500MG/ 250ML 250 ML IV ONE (14:07)
[2024-08-31] MEDS: ALBUTEROL SULF 2.5 MG/0.5ML(0.5%) NEB SOLN NEB SCH (14:17)
[2024-08-31] MEDS: IPRATROPIUM BROM 0.5 MG/2.5ML INH SOL NEB SCH (14:17)
--- NOTE | 2024-08-31 14:52 | DVHINCON2 ---
Date Seen: August 31, 2024 Referring Physician MD Sami Reason for Consultation NSTEMI, CHF History of Present Illness This is a 64-year-old male patient who presents to the emergency room with chief complaint of worsening shortness of breath for one day. The patient reports he noticed that he was having some shortness of breath yesterday morning. He reports that the shortness or breath got significantly worse on exertion. He also mentions chest pain that he describes as provoked with exertion, intermittent, pressure-like in nature, midsternal and nonradiating. Initial twelve lead electrocardiogram reveals sinus tachycardia with nonspecific ST segment changes to anterolateral leads and prolonged QTc interval. Initial troponin level of 110ng/L with significant up trend and current peak level at 7580ng/L. A repeat twelve lead electrocardiogram was ordered at time of significant troponin increase and reveals progressive ECG changes including normal sinus rhythm with ST segment changes to anterolateral leads. Initial BNP level of 751 pg/mL. Significant past medical history includes coronary artery disease s/p PTCA X1 KENA to LAD (on Plavix), hypertension, hyperlipidemia, CVA without residual deficits, type 2 diabetes mellitus, right eye blindness, tobacco use and alcohol use. The patient denies seeing a director professional services in the outpatient setting. Past Medical History Past medical history reviewed. No other significant than mentioned above. Past Surgical History Denies any previous surgeries Family History: Diabetes mellitus G8 MOTHER G8 FATHER Hypertension G8 MOTHER G8 FATHER Ischemic heart disease Family History Family history reviewed. Social History Patient has a 50 pack-year history, quit smoking 14 months ago Drinks approximately 6-7 beers per day Admits to occasional marijuana use Allergies: Coded Allergies: NO KNOWN ALLERGIES (Unverified , 07/12/14) Home Meds Active Scripts Azithromycin (Azithromycin) 250 Mg Tab, 250 MG PO DAILY MDD 500 for 5 Days, #6 TAB 0 Refills 2 TABLETS ORALLY ON DAY ONE, THEN 1 TABLET ORALLY DAILY FOR 4 DAYS Prov:WANG GALINDO RESIDENT 12/27/23 Empagliflozin (Jardiance) 10 Mg Tab, 10 MG PO DAILY for 30 Days, #30 TAB Prov:WANG GALINDO RESIDENT 12/27/23 Spironolactone (Aldactone) 25 Mg Tab, 25 MG PO DAILY for 30 Days, #30 TAB Prov:WANG GALINDO RESIDENT 8/26/24 Sacubitril-Valsartan (Entresto 24-26 mg) 1 Tab Tab, 1 TAB PO BID for 30 Days, #60 TAB Prov:WANG GALINDO RESIDENT 12/27/23 Carvedilol (COREG) 12.5 Mg Tab, 25 MG PO BID for 30 Days, #120 TAB Prov:WANG GALINDO RESIDENT 12/27/23 Furosemide (Furosemide) 20 Mg Tab, 1 TAB PO DAILY, #3 TAB 0 Refills Prov:RACHELLE WRIGHT MD 08/20/21 Atorvastatin Calcium (ATORVASTATIN CALCIUM) 40 Mg Tab, 1 TAB PO QPM, #90 TAB 0 Refills Prov:RACHELLE WRIGHT MD 03/06/21 Clopidogrel Bisulfate (Plavix) 75 Mg Tab, 75 MG PO DAILY for 90 Days, #90 TAB Prov:RACHELLE WRIGHT MD 03/06/21 Reported Medications Venlafaxine Hcl (Venlafaxine Hcl Er) 150 Mg Cap, 1 CAP PO DAILY for 90 Days, #90 12/27/23 Cholecalciferol (Vitamin D) 1,000 Unit Tab, 1000 UNIT PO DAILY, TAB 03/05/21 Aspirin (Aspir-Low) 81 Mg Tab, 81 MG PO DAILY, MG 03/05/21 Metformin Hydrochloride (Metformin Hcl Er) 500 Mg Tab, 500 MG PO BID, TAB 03/05/21 Home Meds Home medications reviewed. Current Medications Current Medications Medications (Trade) Dose Ordered Sig/Danay Route PRN Reason Start Time Stop Time Status Last Admin Furosemide (Lasix Injection) 20 mg BIDD IV 08/31/24 06:00 08/31/24 11:47 DC 08/31/24 06:20 Aspirin 162 mg DAILY PO 08/31/24 10:00 08/31/24 09:38 Atorvastatin Calcium (Lipitor) 40 mg HS PO 08/31/24 22:00 Carvedilol (Coreg Tablet) 25 mg Q12HR PO 08/31/24 10:00 08/31/24 09:39 Clopidogrel Bisulfate (Plavix) 75 mg DAILY PO 08/31/24 10:00 08/31/24 09:39 Sacubitril/ Valsartan (Entresto 24-26 Mg tab) 1 tab BID PO 08/31/24 10:00 08/31/24 09:39 Spironolactone (Aldactone) 25 mg DAILY PO 08/31/24 10:00 08/31/24 09:38 Diagnostic Test (Pha) (Accu-Chek Comfort Curve T) 1 strip ACHS 08/31/24 07:00 08/31/24 10:57 Insulin Human Regular (InsuLIN R) ACHS SC 08/31/24 07:00 08/31/24 06:26 Dextrose 50 ml UD PRN IV Blood Sugar LESS THAN 60 08/30/24 22:30 Ondansetron HCl (Zofran) 4 mg Q4HP PRN IV NAUSEA / VOMITING 08/30/24 22:30 Enoxaparin Sodium (Lovenox) 40 mg DAILY SC 08/31/24 10:00 08/31/24 06:11 DC Acetaminophen (Tylenol Tablet) 650 mg Q6HP PRN PO PAIN SCALE 1-3 OR TEMP>100.4 08/30/24 22:30 08/31/24 09:38 Nitroglycerin (Ntrostat Sublingual) 0.4 mg Q5MINP PRN SL FOR CHEST PAIN 08/30/24 22:30 Morphine Sulfate 2 mg Q30M PRN IV FOR CHEST PAIN 08/30/24 22:30 Heparin Sodium/ Dextrose 250 ml @ 8.46 mls/hr Q24H IV 08/31/24 03:30 UNV Heparin Sodium/ Dextrose 250 ml @ 8.5 mls/hr Q24H IV 08/31/24 03:45 08/31/24 11:38 DC 08/31/24 04:31 Enoxaparin Sodium (Lovenox) 40 mg DAILY SC 08/31/24 10:00 08/31/24 06:27 DC Heparin Sodium/ Dextrose 250 ml @ 10.5 mls/hr [id number] IV 08/31/24 11:45 08/31/24 11:51 Furosemide (Lasix Injection) 40 mg BIDD IV 08/31/24 18:00 Ceftriaxone Sodium 50 ml @ 100 mls/hr DAILY@09 IV 09/01/24 09:00 Azithromycin 250 ml @ 125 mls/hr DAILY IV 09/01/24 10:00 Albuterol (Ventolin Medneb) 2.5 mg Q4HR NEB 08/31/24 14:00 08/31/24 14:17 Ipratropium [place] (Atrovent Medneb) 0.5 mg Q4HR NEB 08/31/24 14:00 08/31/24 14:17 Folic Acid 1 mg/ Magnesium Sulfate 8 meq/ Multivitamins 10 ml/Thiamine HCl 100 mg/Sodium Chloride 1,013.2 ml @ 126.247 mls/hr DAILY@1800 INJ 08/31/24 18:00 Review of Systems Constitutional: No symptom reported Ears, Nose, & Throat: No symptom reported Eyes: No symptom reported Neurological: No symptoms reported Pulmonary/Respiratory: Shortness of breath Cardiovascular: Chest pain Gastrointestinal: No symptom reported Genitourinary: No symptom reported Musculoskeletal: No symptom reported Skin: No symptom reported Psychiatric: No symptom reported Endocrine: No symptom reported Hematologic/Lymphatic: No symptom reported Vital Signs Vital Signs Date Time Temp Pulse Resp B/P (MAP) Pulse Ox O2 Delivery O2 Flow Rate FiO2 08/31/24 14:27 73 16 100 08/31/24 14:17 Room Air* 0 21 08/31/24 13:00 98.8 97/60 (72) 98.8 Physical Exam General Appearance: Cooperative. Well-developed. Well-nourished. No acute distress. Pulmonary/Respiratory: Diminished bilateral lower lobe sounds Cardiovascular/Chest: Regular rate and rhythm. Peripheral Pulses: 2+ Radial (R). 2+ Radial (L). 2+ Pedal (R). 2+ Pedal (L) Abdominal Exam: Normal bowel sounds. Ankle Exam: Negative ankle edema Lower extremities: Negative lower extremity edema Neuro/Mental Status: A/OX4, coherent. Thoughts/Psych: Normal thought pattern. Appropriate mood and affect. Good judgme nt and insight. Appearance: No acute distress. Skin Exam: Normal inspection. Normal color. Warm and dry. Labs/Diagnostic Data Labs Test 08/31/24 13:22 08/31/24 12:38 08/31/24 10:54 08/31/24 08:57 Range/Units Troponin I High Sensitivity 7580 *H </=54 ng/L POC Glucose 120 H 70-106 mg/dl Prothrombin Time 12.3 H 9.3-11.8 sec Prothrombin Time INR 1.18 H 0.9-1.15 Activated Partial Thromboplast Time 36.2 H 24.5-34.5 SEC Test 08/31/24 04:45 08/30/24 23:30 08/30/24 23:20 08/30/24 20:35 Range/Units White Blood Count 11.4 H 4.4-10.8 10^3/uL Red Blood Count 4.88 4.5-5.90 10^6/uL Hemoglobin 15.5 13.5-17.5 g/dL Hematocrit 45.1 41.0-53.0 % Mean Corpuscular Volume 92.4 80.0-100.0 fL Mean Corpuscular Hemoglobin 31.8 28.0-32.0 pg Mean Corpuscular Hemoglobin Concent 34.4 32.0-36.0 g/dL Red Cell Distribution Width 13.8 11.8-14.3 % Platelet Count 232 140-450 10^3/uL Mean Platelet Volume 9.7 6.9-10.8 fL Neutrophils (%) (Auto) 69.5 37.0-80.0 % Lymphocytes (%) (Auto) 16.4 10.0-50.0 % Monocytes (%) (Auto) 12.9 H 0.0-12.0 % Eosinophils (%) (Auto) 0.5 0.0-7.0 % Basophils (%) (Auto) 0.7 0.0-2.0 % Neutrophils # (Auto) 7.9 1.6-8.6 10 ^3/uL Lymphocytes # (Auto) 1.9 0.4-5.4 10 ^3/uL Monocytes # (Auto) 1.5 H 0-1.3 10 ^3/uL Eosinophils # (Auto) 0.1 0-0.8 10 ^3/uL Basophils # (Auto) 0.1 0-0.2 10 ^3/uL Nucleated Red Blood Cells 0.1 % Sodium Level 140 136-145 mmol/L Potassium Level 4.4 3.5-5.1 mmol/L Chloride Level 104 98-107 mmol/L Carbon Dioxide Level 31 20-31 mmol/L Anion Gap 5 5-15 Blood Urea Nitrogen 9 9-23 mg/dL Creatinine 1.06 0.700-1.30 mg/dL Glomerular Filtration Rate Calc 78 >90 mL/min BUN/Creatinine Ratio 8.5 L 10.0-20.0 Serum Glucose 144 H 74-106 mg/dL Calcium Level 9.9 8.7-10.4 mg/dL Triglycerides Level 122 < 150 mg/dL Cholesterol Level 147 < 200 mg/dL LDL Cholesterol 68 < 100 mg/dL HDL Cholesterol 56 40-59 mg/dL Thyroid Stimulating Hormone (TSH) 1.02 0.55-4.78 uIU/mL Urine Color Light-yellow Yellow Urine Clarity Clear Clear Urine pH 6.0 5.0-9.0 Urine Specific [place] 1.008 1.001-1.035 Urine Protein 1+ H Negative Urine Ketones Negative Negative Urine Blood Negative Negative /uL Urine Nitrite Negative Negative Urine Bilirubin Negative Negative Urine Urobilinogen Normal Negative mg/dL Urine Leukocyte Esterase Negative Negative /uL Urine RBC <1 0 - 3 /hpf Urine Microscopic WBC 2 0-3 /HPF Urine Squamous Epithelial Cells Few <5 /hpf Urine Bacteria None seen None Seen /hpf Urine Hyaline Casts Few 0 - 2 /lpf Urine Glucose Trace Normal mg/dL D-Dimer, Quantitative 1.66 H 0.0-0.49 mg/L FEU B-Type Natriuretic Peptide 751.51 0-100 pg/mL Assessment NSTEMI, rule out progressive coronary artery disease Coronary artery disease s/p PTCA x1 KENA (on Plavix) Acute on chronic decompensated HFrEF, NYHA class III Ischemic cardiomyopathy Hypertension Hyperlipidemia Pneumonia CVA without residual deficits Type 2 diabetes mellitus History of tobacco use Plan/Recommendation We will proceed with the following plan/recommendations (Dr. Washington): * Transthoracic echocardiogram reveals EF 40% with hypokinetic apex * Initiate guideline directed medical therapy for CHF as tolerated * Strict intake and output, daily weights, maintain fluid restriction * Preload and afterload reduction * Chest pain protocol * HEART score: 7 points * NOEL score: 5 points * Continue single antiplatelet therapy and lipid-lowering agent * Coronary angiogram with left heart catheterization Case discussed with . Given the patient's clinical presentation,twelve lead electrocardiogram, and significant up-trend in troponin levels, we will recommend for the patient to undergo a coronary angiogram with left heart catheterization. The procedure was discussed with the patient in full detail including risks and benefits. Risks include but are not limited to bleeding, contrast-induced nephropathy, stroke, and even . The patient understands and is agreeable to undergo the procedure. We will schedule the patient at soonest availability on 09/01/2024. Thank you for allowing us to care for this patient. Please call with any questions or concerns. Critical care time spent: 44 minutes This medical document was created using an electronic medical record system with voice recognition software and computerized dictation system. Although this document has been carefully reviewed, there might still be some phonetic and typographical errors. Occasional wrong-word or ``sound-alike substitutions may have occurred due to the inherent limitations of voice recognition software. These areas are purely typographical due to imperfections of the software programs and do not reflect any compromise in the patient's medical care. Please read the chart carefully and recognize, using context, where these substitutions have occurred. Plan discussed with: Patient NYHA Physical activity limitations: Class3(Marked) ordinary Date of Service: August 31, 2024 Billing Provider: PARI SHAH Cardiology Common Codes: 30184-[id number] INP/OBS CARE (High) Cardiology Consultation Codes: [id number] CONSULT <45MIN PARI SHAH August 31, 2024 14:52
[2024-08-31 15:02] LABS: COVID19 ANTIGEN SOFIA FIA NEGATIVE (NEGATIVE); Rapid Influenza A Negative (Negative); Rapid Influenza B Negative (Negative)
--- NOTE | 2024-08-31 15:35 | DVH ---
PROCEDURE: CT CT ANGIO CHEST CONTRAST 08/31/2024 12:55 PM INDICATION: Elevated D-dimer rule out PE COMPARISON: CT CT ANGIO CHEST CONTRAST on DOS: 12/25/23, CT ANGIO CHEST CONTRAST on DOS: 08/17/21, CTAC H on DOS: 08/17/21 TECHNIQUE: Coverage: Thorax IV contrast: Administered Phases: Arterial Multiplanar 3-D Maximum Intensity Projection images (MIP) reconstructions were created by the technol jacquesist in the coronal and sagittal planes as part of the CT angiography protocol. Adverse events: None Medication laboratory values were reviewed to verify the patient meets criteria for contrast administ ration. All CT scans at this medical facility are performed using dose modulation techniques as appropriate t o a performed exam including the following: Automated exposure control was utilized; adjustment of th e MA and/or KV according to patient size; and use of iterative reconstruction technique. Radiation dose: CTDIvol 20.72 mGy, DLP 416.35 mGy*cm. FINDINGS: Cardiovascular: No evidence of acute or chronic pulmonary emboli identified. Aorta is normal in calib er with diffuse atherosclerotic calcification noted. The heart is normal in size. Coronary artery rain cification noted. Lungs: No lobar consolidation. Mild right basilar subsegmental atelectasis. No pleural effusion. No pneumothorax. Trace fluid noted in the right bronchus. Thyroid: Unremarkable. Esophagus: Unremarkable. Lymphatics: No hilar or mediastinal lymphadenopathy. Bones/soft tissues: No acute abnormality. Multilevel degenerative changes of the thoracic spine are n oted. Upper abdomen: No acute abnormality. A subcentimeter nonobstructing stone noted in the right kidney. Other: None. IMPRESSION: 1. No evidence of acute pulmonary emboli. 2. Small amount of fluid in the right main bronchus likely secretions. No evidence of aspiration pneu monia at this time. Mild right basilar subsegmental atelectasis noted.
[2024-08-31] MEDS: FUROSEMIDE 40 MG/4 ML VIAL IV SCH (17:25)
[2024-08-31] MEDS: FOLIC ACID 1 MG, MAGNESIUM SULF SDV 50% 8 MEQ, MULTIPLE VITAMIN 10 ML, THIAMINE INJ 100... INJ SCH (17:43)
[2024-08-31 18:52] LABS: INR 1.2 (0.9-1.15); Prothrombin Time 12.5 sec (9.3-11.8)
--- NOTE | 2024-08-31 19:21 | ECG ---
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
[2024-08-31] MEDS: MORPHINE SULFATE INJ 2 MG/ml SYRG IV PRN (20:35)
[2024-08-31] MEDS: ATORVASTATIN 20 MG TAB PO SCH (21:18)
[2024-09-01] VITALS (20 sets, daily range): BP systolic 92–132; BP diastolic 57–83; PULSE 70–87; RESP 14–22; TEMP 97.6–99.1; O2SAT 91–100
[2024-09-01 01:46] LABS: INR 1.2 (0.9-1.15); Partial Thromboplastin Time 60.5 SEC (24.5-34.5); Prothrombin Time 12.5 sec (9.3-11.8)
--- NOTE | 2024-09-01 08:04 | ECG ---
[facility] Test Date: 2024-08-31 Test Time: 14:53:02 Pat Name: TORI MCCONNELL Department: Room: 0295T A Gender: M Auto Transmission Specialist: jayy : 1960 Requested By: PARI SHAH Order Number: [id number] Reading MD: Johnnie Washington Measurements Intervals [place] Rate: 76 P: 81 [place]: 181 QRS: 12 QRSD: 107 T: 190 QT: 490 QTc: 552 Interpretive Statements Sinus rhythm Incomplete left bundle branch block Abnormal T, consider ischemia, anterior leads Minimal ST elevation, anterior leads Prolonged QT interval Artifact in lead(s) III,aVL,aVF,V4 and baseline wander in lead(s) V2,V4 Electronically Signed On 09-01-2024 9:08:45 PDT by Johnnie Washington Please click the below link to view image of tracing.
--- NOTE | 2024-09-01 08:04 | ECG ---
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
[2024-09-01 08:13] LABS: Basophils # (auto) 0 10 ^3/uL (0-0.2); Basophils % (auto) 0.6 % (0.0-2.0); Eosinophils # (auto) 0.1 10 ^3/uL (0-0.8); Eosinophils % (auto) 1.4 % (0.0-7.0); Hemoglobin 14.8 g/dL (13.5-17.5); Lymphocytes # (auto) 1.8 10 ^3/uL (0.4-5.4); Lymphocytes % (auto) 19.5 % (10.0-50.0); Mean Corpuscular Hemoglobin 32.2 pg (28.0-32.0); Mean Corpuscular Hgb Conc. 34.4 g/dL (32.0-36.0); Mean Corpuscular Volume 93.8 fL (80.0-100.0); Monocytes # (auto) 1.2 10 ^3/uL (0-1.3); Monocytes % (auto) 12.8 % (0.0-12.0); Neutrophils # (auto) 5.9 10 ^3/uL (1.6-8.6); Neutrophils % (auto) 65.7 % (37.0-80.0); Platelet Count (auto) 160 10^3/uL (140-450); Red Blood Cells 4.58 10^6/uL (4.5-5.90); Red Cell Distribution Width 13.3 % (11.8-14.3)
--- NOTE | 2024-09-01 08:18 | CONS ---
Pharmacy Clinical Information: CQM HF (missing SGLT2). Patient will be started on empagliflozin today which is an SGLT2. No recommendations at this time. SILVIA CRISTOBAL PHARMACIST September 01, 2024 08:18
[2024-09-01 08:19] LABS: Anion Gap 9 (5-15); Carbon Dioxide 26 mmol/L (20-31); Chloride 102 mmol/L (98-107); Potassium 3.7 mmol/L (3.5-5.1); Sodium 137 mmol/L (136-145)
[2024-09-01 08:21] LABS: Calcium 9.7 mg/dL (8.7-10.4)
[2024-09-01 08:24] LABS: INR 1.19 (0.9-1.15); Partial Thromboplastin Time 45.5 SEC (24.5-34.5); Prothrombin Time 12.4 sec (9.3-11.8)
[2024-09-01 08:26] LABS: BUN/Creatinine Ratio 12.5 (10.0-20.0); Blood Urea Nitrogen 9 mg/dL (9-23); Glucose 118 mg/dL (74-106)
[2024-09-01] MEDS: EMPAGLIFLOZIN 10 MG TAB PO SCH (10:00)
--- NOTE | 2024-09-01 10:31 | DVHPN2 ---
Reviewed: Care Plan, H&P, Labs, Medications, Previous Orders, Radiology Changes from previous H/P or p: No Changes Objective Vitals Vital Signs Date Time Temp Pulse Resp B/P (MAP) Pulse Ox O2 Delivery O2 Flow Rate FiO2 09/01/24 09:36 86 18 99 09/01/24 09:30 Room Air* 0 21 09/01/24 08:49 99.1 116/66 (83) 99.1 Intake/Output Intake and Output 09/01/24 07:00 Intake Total 760 ml Output Total 2500 ml Balance -1740 ml Intake Oral 760 ml Output Urine Total 2500 ml Medications Current Medications Medications Dose Ordered Sig/Danay Route Start Time Stop Time Status Last Admin Dose Admin Atorvastatin Calcium 40 mg HS PO 08/31/24 22:00 08/31/24 21:18 40 MG Carvedilol 25 mg Q12HR PO 08/31/24 10:00 08/31/24 21:19 25 MG Clopidogrel Bisulfate 75 mg DAILY PO 08/31/24 10:00 08/31/24 09:39 75 MG Sacubitril/ Valsartan 1 tab BID PO 08/31/24 10:00 08/31/24 21:18 1 TAB Spironolactone 25 mg DAILY PO 08/31/24 10:00 08/31/24 09:38 25 MG Diagnostic Test (Pha) 1 strip ACHS 08/31/24 07:00 09/01/24 06:28 1 STRIP Insulin Human Regular ACHS SC 08/31/24 07:00 08/31/24 21:08 2 UNITS Dextrose 50 ml UD PRN IV 08/30/24 22:30 Ondansetron HCl 4 mg Q4HP PRN IV 08/30/24 22:30 Acetaminophen 650 mg Q6HP PRN PO 08/30/24 22:30 08/31/24 09:38 650 MG Nitroglycerin 0.4 mg Q5MINP PRN SL 08/30/24 22:30 Morphine Sulfate 2 mg Q30M PRN IV 08/30/24 22:30 08/31/24 20:35 2 MG Heparin Sodium/ Dextrose 250 ml @ 8.46 mls/hr Q24H IV 08/31/24 03:30 UNV Furosemide 40 mg BIDD IV 08/31/24 18:00 Ceftriaxone Sodium 50 ml @ 100 mls/hr DAILY@09 IV 09/01/24 09:00 Azithromycin 250 ml @ 125 mls/hr DAILY IV 09/01/24 10:00 Albuterol 2.5 mg Q4HR NEB 08/31/24 14:00 09/01/24 09:30 2.5 MG Ipratropium [place] 0.5 mg Q4HR NEB 08/31/24 14:00 09/01/24 09:30 0.5 MG Folic Acid 1 mg/ Magnesium Sulfate 8 meq/ Multivitamins 10 ml/Thiamine HCl 100 mg/Sodium Chloride 1,013.2 ml @ 126.247 mls/hr DAILY@1800 INJ 08/31/24 18:00 08/31/24 17:43 126.247 MLS/HR Empaglifozin 10 mg DAILY PO 09/01/24 10:00 Heparin Sodium/ Dextrose 250 ml @ 13 mls/hr [id number] IV 09/01/24 08:45 Laboratory Results Laboratory Tests 09/01/24 07:43 Chemistry Test 09/01/24 07:43 Calcium Level 9.7 mg/dL (8.7-10.4) Coagulation Test 08/31/24 18:11 09/01/24 00:25 09/01/24 07:43 Prothrombin Time 12.5 sec (9.3-11.8) H 12.5 sec (9.3-11.8) H 12.4 sec (9.3-11.8) H Prothrombin Time INR 1.20 (0.9-1.15) H 1.20 (0.9-1.15) H 1.19 (0.9-1.15) H Activated Partial Thromboplast Time 56.0 SEC (24.5-34.5) H 60.5 SEC (24.5-34.5) H 45.5 SEC (24.5-34.5) H Urinalysis Test 08/30/24 23:30 Urine Color Light-yellow (Yellow) Urine Clarity Clear (Clear) Urine pH 6.0 (5.0-9.0) Urine Specific [place] 1.008 (1.001-1.035) Urine Protein 1+ (Negative) H Urine Ketones Negative (Negative) Urine Blood Negative /uL (Negative) Urine Nitrite Negative (Negative) Urine Bilirubin Negative (Negative) Urine Urobilinogen Normal mg/dL (Negative) Urine Leukocyte Esterase Negative /uL (Negative) Urine RBC <1 /hpf (0 - 3) Urine Microscopic WBC 2 /HPF (0-3) Urine Squamous Epithelial Cells Few /hpf (<5) Urine Bacteria None seen /hpf (None Seen) Urine Hyaline Casts Few /lpf (0 - 2) Urine Glucose Trace mg/dL (Normal) Labs and/or images reviewed: Labs reviewed by me, Image(s) reviewed by me Assessment/Plan Assessment/Plan Acute hypoxic respiratory failure: Oxygen by nasal cannula Non ST-elevation PA with a troponin of 1.4 K: Treatment per ACS protocol cardiology consult with Dr. Washington, patient getting left heart catheterization Congestive heart failure exacerbation BNP 151: Ejection fraction 40% Lasix echocardiogram Uncontrolled diabetes: Insulin sliding scale Secondary to pneumonia: Blood cultures Possible community-acquired pneumonia: Rocephin azithromycin Hypertension History of CVA Acute COPD exacerbation History of PA status post PTCA and stents 4 yrs ago History of smoking more than 30 years, quit one year back Chronic current alcohol abuse: Banana bag Rapid flu test negative COVID test negative Elevated D-dimer 1.66: DVT ruled out PE ruled Lipid panel normal TSH normal PCP Dr. Bernal Time spent 55 minutes Plan discussed with: Patient My Orders Orders - WAN ALFONSO MD Procedure Category Date Status Time Ct Angio Chest CT 08/31/24 Resulted Contrast 11:41 Bilat Lower Dvt US 08/31/24 Resulted 11:41 * Cardiology Consult CONS 08/31/24 Transmitted 11:43 Ceftriaxone 1gm/50ml PHA 09/01/24 In Process D5w (Rocephin) 09:00 Azithromycin 500mg/ PHA 09/01/24 In Process 250ml (Zithromax 50 10:00 Blood Culture MATT 08/31/24 In Process 11:50 Echo 2d Mode Cardiac US 08/31/24 Resulted DOP 11:59 Albuterol Medneb PHA 08/31/24 In Process (Ventolin Medneb) 14:00 Ipratropium Medneb PHA 08/31/24 In Process (Atrovent Medneb) 14:00 Folic Acid... PHA 08/31/24 In Process 18:00 Furosemide Injection PHA 08/31/24 In Process (Lasix Injection) 18:00 Date of Service: September 01, 2024 Billing Provider: WAN ALFONSO MD Common Visit Codes: [id number] INP/OBS CARE(HIGH) WAN ALFONSO MD September 01, 2024 10:31
[2024-09-01] MEDS: HEPARIN DRIP/D5W 100UNITS/ML 250 ML IV SCH (11:12)
[2024-09-01] MEDS: cefTRIAXone 1GM/50ML D5W 50 ML IV SCH (11:13)
--- NOTE | 2024-09-01 12:02 | CONS ---
Pharmacy Clinical Information: HEPARIN PER PHARMACY SPOKE TO DAMASO Trevizo REGARDING heparin dose change Current dose: 1050 units/hr CURRENT aPTT: 45.5 on 09/01/24 at 07:43 BOLUS: no Increase (new dose): 1300 units/hr Date and time new dose started: 11:12 ON 09/01/2024 Next aPTT: 09/01/2024 AT 17:00 DAMASO Oden READ BACK NEW DOSE: 1300 UNITS/HR TRIPP Maza September 01, 2024 12:02
[2024-09-01] MEDS: AZITHROMYCIN 500MG/ 250ML 250 ML IV SCH (12:15)
[2024-09-01] MEDS: HEPARIN SODIUM (PORCINE) 5000 UNITS/ML 1ML VIAL ONE (12:28)
[2024-09-01] MEDS: VERAPAMIL 2.5MG/ML INJ 2ML VIAL IV ONE (12:28)
[2024-09-01] MEDS: ANGIOMAX 250 MG VIAL IV ONE (12:28)
[2024-09-01] MEDS: fentaNYL CITRATE 100 MCG/2 ML VL ONE ×2 (12:29→13:31)
[2024-09-01] MEDS: LIDOCAINE 2%HCL (LOCAL ANESTH.) INJ 20ML MDV ONE (12:29)
[2024-09-01] MEDS: IODIXANOL 320MG/ML 100ML BTL IV ONE (12:29)
[2024-09-01] MEDS: SODIUM CHL 0.9% 50 ML ONE (12:29)
[2024-09-01] MEDS: MIDAZOLAM HCL 2MG/2ML 2ml VIAL (1mg/ml) ONE ×2 (12:29→13:31)
--- NOTE | 2024-09-01 13:53 | ECG ---
[facility] Test Date: 2024-08-31 Test Time: 14:50:45 Pat Name: TORI MCCONNELL Department: Room: 0295T A Gender: M Transport Coordinator: jayy : 1960 Requested By: PARI SHAH Order Number: [id number] Reading MD: Johnnie Washington Measurements Intervals [place] Rate: 76 P: 69 MI: 173 QRS: 7 QRSD: 106 T: 217 QT: 526 QTc: 592 Interpretive Statements Sinus rhythm Abnrm T, probable ischemia, anterolateral lds Minimal ST elevation, anterior leads Prolonged QT interval Baseline wander in lead(s) V4 Electronically Signed On 09-01-2024 15:31:42 PDT by Johnnie Washington Please click the below link to view image of tracing.
[2024-09-01] MEDS ORDERED: HYDROcodone-ACET 10/325MG TAB PO PRN (14:15)
[2024-09-01] MEDS ORDERED: HYDROmorphone HCL 2 MG/ML VL/or syr IV PRN (14:15)
--- NOTE | 2024-09-01 15:25 | DVHOP2 ---
Operative Report - 2 Report Details Date: 09/01/24 Preop Diagnosis: Coronary artery disease. Postop Diagnosis: two-vessel CAD. Successful PTCA and stenting of the RCA. Surgeon: Francesca Washington MD Anesthesiologist: Conscious sedation Anesthesia: Mac, Local Drains: None Consent: The patient was informed of the risks and benefits of the procedure. These include but are not limited to complications of anesthesia, postoperative infection, incomplete relief of symptoms, recurrence of symptoms, damage to blood vessels, nerves and tendons, deep venous thrombosis, pulmonary embolism and possible need for repeat surgery in the future. Complications: No complications Fluids: 2 cc. Findings: Two-vessel coronary artery disease. Significant stenosis of RCA. Indications for Surgery: Congestive heart failure. Angina. Name of Procedure Performed Bilateral cine coronary angiography. Left ventriculography. PTCA and stenting of the RCA. Procedure Details Procedure Details: Prior local anesthesia with 2% lidocaine to the right wrist and full informed consent obtained the patient was prepped and draped in usual fashion followed by placement of a six [place] sheath into the right radial artery through which a [employer] catheter was used for ventriculography and cannulation of both right and left coronary ostia without complications. Hemodynamics: aortic blood pressure Was 100/50 end-diastolic pressure was 20. There was no gradient across the aortic valve on pullback. Coronary anatomy: The RCA is a medium to large caliber vessel it has moderate plaquing throughout. Noted calcification throughout the proximal mid and distal segments. There is a mid 60-70% lesion. The distal RCA prior to the bifurcation has a 99% stenosis that is calcified. The PDA and posterolateral branches are normal. Left main is large and normal. Left anterior descending is a large vessel it is 100% occluded proximally. Faint intracoronary collaterals to the mid and distal LAD. Diagonals are free of significant disease. First diagonal has moderate plaquing throughout. There is a large intermediate artery which is normal. The circumflex itself is a small vessel it has one small marginal branch. There is moderate disease throughout the very small remainder of the circumflex proper. Ventriculography performed in the PEREZ projection shows an EF of 25-30%. There is global hypokinesis. Anterior wall however is functioning however hypokinetic. Angioplasty was performed for which an AL1 guide was placed with a Specter wire over a 2.5 mm balloon. We then exchanged the wire for a choice floppy which we were able to negotiate into the distal RCA. We then placed a two five balloon into the lesion and after several dilatations we were able to pass the balloon into the lesion and pre dilate enough to place a stent. We had to use a Guidez illa device given the tortuosity proximally. We were then able to place a two five by 10 mm balloon into the distal RCA. We placed a 3.0 mm x 8 mm stent into the distal RCA. We then placed a 3.5 x 18 mm stent into the mid RCA and proximal to that a 3.5 x 8 mm stent. There was excellent antegrade flow without thrombus formation and/or dissection. a staged procedure was to be performed of to the LAD however this was put off for a later date given the restlessness of the patient. Impression two-vessel coronary artery disease with successful PTCA and stenting of the RCA. Chronically occluded LAD. Distal collateralization. Decreased left ventricular ejection fraction. Elevated left ventricular end-diastolic pressure at rest. Recommendations: We will schedule this patient for staged procedure either next week or as an outpatient. Continue risk factor modification with dual antiplatelet therapy and lipid-lowering therapy. Condition Guarded Disposition Still a Patient Date of Service: September 01, 2024 Billing Provider: FRANCESCA WASHINGTON Sr., MD Cardiology Common Codes: [id number] INP/OBS CARE (High) Cardiology Procedure Codes: 66090-ANPXFP VESSEL W/I VASC FAM, 56447 -PTCA W/STENT PLACEMENT, 65708-ELOL ADD CORONARY BRANCH FRANCESCA WASHINGTON Sr., MD September 01, 2024 15:25
--- NOTE | 2024-09-01 16:10 | DVHPN2 ---
Consult Progress Note Date Seen: September 01, 2024 Subjective Review of Systems: CVS:Normal, RESPIRATORY:Normal, NEURO:Normal Objective vital signs Vital Sign Date Time Temp Pulse Resp B/P (MAP) Pulse Ox O2 Delivery O2 Flow Rate FiO2 09/01/24 12:50 97.7 81 22 121/72 (88) 98 97.7 09/01/24 09:30 Room Air* 0 21 Total Intake and Output 08/31/24 08/31/24 09/01/24 15:00 23:00 07:00 Intake Total 760 ml 0 ml Output Total 1600 ml 900 ml Balance -840 ml -900 ml medications Current Medications Medications Dose Ordered Sig/Danay Route Start Time Stop Time Status Last Admin Dose Admin Atorvastatin Calcium 40 mg HS PO 08/31/24 22:00 08/31/24 21:18 40 MG Carvedilol 25 mg Q12HR PO 08/31/24 10:00 09/01/24 11:14 25 MG Clopidogrel Bisulfate 75 mg DAILY PO 08/31/24 10:00 09/01/24 11:14 75 MG Sacubitril/ Valsartan 1 tab BID PO 08/31/24 10:00 09/01/24 12:16 1 TAB Spironolactone 25 mg DAILY PO 08/31/24 10:00 09/01/24 12:15 25 MG Diagnostic Test (Pha) 1 strip ACHS 08/31/24 07:00 09/01/24 12:16 1 STRIP Insulin Human Regular ACHS SC 08/31/24 07:00 08/31/24 21:08 2 UNITS Dextrose 50 ml UD PRN IV 08/30/24 22:30 Ondansetron HCl 4 mg Q4HP PRN IV 08/30/24 22:30 Acetaminophen 650 mg Q6HP PRN PO 08/30/24 22:30 08/31/24 09:38 650 MG Nitroglycerin 0.4 mg Q5MINP PRN SL 08/30/24 22:30 Morphine Sulfate 2 mg Q30M PRN IV 08/30/24 22:30 08/31/24 20:35 2 MG Heparin Sodium/ Dextrose 250 ml @ 8.46 mls/hr Q24H IV 08/31/24 03:30 UNV Furosemide 40 mg BIDD IV 08/31/24 18:00 Ceftriaxone Sodium 50 ml @ 100 mls/hr DAILY@09 IV 09/01/24 09:00 09/01/24 11:13 100 MLS/HR Azithromycin 250 ml @ 125 mls/hr DAILY IV 09/01/24 10:00 09/01/24 12:15 125 MLS/HR Albuterol 2.5 mg Q4HR NEB 08/31/24 14:00 09/01/24 09:30 2.5 MG Ipratropium [place] 0.5 mg Q4HR NEB 08/31/24 14:00 09/01/24 09:30 0.5 MG Folic Acid 1 mg/ Magnesium Sulfate 8 meq/ Multivitamins 10 ml/Thiamine HCl 100 mg/Sodium Chloride 1,013.2 ml @ 126.247 mls/hr DAILY@1800 INJ 08/31/24 18:00 08/31/24 17:43 126.247 MLS/HR Empaglifozin 10 mg DAILY PO 09/01/24 10:00 Acetaminophen/ Hydrocodone Bitart 1 tab Q4HP PRN PO 09/01/24 14:15 UNV Hydromorphone HCl 1 mg Q4HPRN PRN IV 09/01/24 14:15 UNV Examination: LUNGS:Normal, CVS:Normal, NEURO:Normal laboratory and microbiology Laboratory Tests 09/01/24 07:43 Test 09/01/24 07:43 Range/Units Serum Glucose 118 H 74-106 mg/dL Problem List/Assessment/Plan Problem List/Assessment/Plan Non ST-Elevation myocardial infarction Severe progressive CAD s/p successful PTCA and stenting of the RCA x 3DES [place] of coronary artery disease s/p PTCA x1 KENA (on Plavix) Acute on chronic decompensated HFrEF, NYHA class III Ischemic cardiomyopathy Hypertension Hyperlipidemia Pneumonia CVA without residual deficits Type 2 diabetes mellitus History of tobacco use Plan/Recommendation (Dr. Washington) * Transthoracic echocardiogram reveals EF 40% with hypokinetic apex * Continue guideline directed medical therapy for CHF as tolerated * Strict intake and output, daily weights, maintain fluid restriction * Preload and afterload reduction. Discontinue banana bag * Continue dual-antiplatelet therapy and lipid-lowering agent * Follow-up with Dr. Washington on 09/15/2024 at [address] * Hospital follow-up for staged procedure of the LAD In the setting of optimal renal function post-procedure, there is no further cardiac work-up indicated at this time. Kindly call if in need to re-consult. Thank you for allowing us to care for this patient. This medical document was created using an electronic medical record system with voice recognition software and computerized dictation system. Although this document has been carefully reviewed, there might still be some phonetic and typographical errors. Occasional wrong-word or ``sound-alike substitutions may have occurred due to the inherent limitations of voice recognition software. These areas are purely typographical due to imperfections of the software programs and do not reflect any compromise in the patient's medical care. Please read the chart carefully and recognize, using context, where these substitutions have occurred. Plan discussed with: Patient, Other Date of Service: September 01, 2024 Billing Provider: AIDEN TRINH Cardiology Common Codes: [id number] INP/OBS CARE(Mod) AIDEN TRINH September 01, 2024 16:10
[2024-09-01] MEDS: CARVEDILOL 12.5 MG TAB PO SCH (22:00)
[2024-09-02] VITALS (21 sets, daily range): BP systolic 102–125; BP diastolic 68–81; PULSE 76–92; RESP 14–20; TEMP 97.8–98.4; O2SAT 93–100
[2024-09-02 07:24] LABS: Basophils # (auto) 0 10 ^3/uL (0-0.2); Basophils % (auto) 0.5 % (0.0-2.0); Eosinophils # (auto) 0.1 10 ^3/uL (0-0.8); Eosinophils % (auto) 1.2 % (0.0-7.0); Hemoglobin 15.1 g/dL (13.5-17.5); Lymphocytes # (auto) 1.1 10 ^3/uL (0.4-5.4); Lymphocytes % (auto) 12.7 % (10.0-50.0); Mean Corpuscular Hemoglobin 31.9 pg (28.0-32.0); Mean Corpuscular Hgb Conc. 34.4 g/dL (32.0-36.0); Mean Corpuscular Volume 92.9 fL (80.0-100.0); Monocytes # (auto) 1.3 10 ^3/uL (0-1.3); Monocytes % (auto) 14.4 % (0.0-12.0); Neutrophils # (auto) 6.3 10 ^3/uL (1.6-8.6); Neutrophils % (auto) 71.2 % (37.0-80.0); Nucleated Red Blood Cells % 0.1 %; Platelet Count (auto) 184 10^3/uL (140-450); Red Blood Cells 4.74 10^6/uL (4.5-5.90); Red Cell Distribution Width 13.5 % (11.8-14.3); White Blood Cell 8.9 10^3/uL (4.4-10.8)
[2024-09-02 07:39] LABS: Alanine Aminotransferase 25 U/L (7-40); Alkaline Phosphatase 73 U/L (46-116); Anion Gap 7 (5-15); BUN/Creatinine Ratio 13.6 (10.0-20.0); Blood Urea Nitrogen 11 mg/dL (9-23); Calcium 9.7 mg/dL (8.7-10.4); Carbon Dioxide 27 mmol/L (20-31); Chloride 105 mmol/L (98-107); Sodium 139 mmol/L (136-145); Total Protein 6.7 g/dL (5.7-8.2)
[2024-09-02 07:40] LABS: Albumin 4.2 g/dL (3.2-4.8)
[2024-09-02 07:44] LABS: Aspartate Aminotransferase 44 U/L (13-40); Glucose 126 mg/dL (74-106); Potassium 3.4 mmol/L (3.5-5.1)
[2024-09-02] MEDS: ASPirin 81 mg TAB PO SCH (09:00)
[2024-09-02] MEDS: EMPAGLIFLOZIN 10 MG TAB PO SCH (10:32)
--- NOTE | 2024-09-02 11:09 | DVHPN2 ---
Reviewed: Care Plan, H&P, Labs, Medications, Previous Orders, Radiology Changes from previous H/P or p: No Changes Objective Vitals Vital Signs Date Time Temp Pulse Resp B/P (MAP) Pulse Ox O2 Delivery O2 Flow Rate FiO2 09/02/24 08:58 88 121/74 09/02/24 08:49 18 100 09/02/24 08:41 Room Air* 0 21 09/02/24 08:35 98.2 98.2 Intake/Output Intake and Output 09/02/24 07:00 Intake Total 1200 ml Output Total 1800 ml Balance -600 ml Intake Oral 900 ml IV Total 300 ml Output Urine Total 1800 ml # Voids 2 Medications Current Medications Medications Dose Ordered Sig/Danay Route Start Time Stop Time Status Last Admin Dose Admin Atorvastatin Calcium 40 mg HS PO 08/31/24 22:00 09/01/24 22:53 40 MG Clopidogrel Bisulfate 75 mg DAILY PO 08/31/24 10:00 09/02/24 08:59 75 MG Sacubitril/ Valsartan 1 tab BID PO 08/31/24 10:00 09/02/24 10:32 1 TAB Spironolactone 25 mg DAILY PO 08/31/24 10:00 09/02/24 08:59 25 MG Diagnostic Test (Pha) 1 strip ACHS 08/31/24 07:00 09/02/24 06:08 1 STRIP Insulin Human Regular ACHS SC 08/31/24 07:00 08/31/24 21:08 2 UNITS Dextrose 50 ml UD PRN IV 08/30/24 22:30 Ondansetron HCl 4 mg Q4HP PRN IV 08/30/24 22:30 Acetaminophen 650 mg Q6HP PRN PO 08/30/24 22:30 08/31/24 09:38 650 MG Nitroglycerin 0.4 mg Q5MINP PRN SL 08/30/24 22:30 Morphine Sulfate 2 mg Q30M PRN IV 08/30/24 22:30 08/31/24 20:35 2 MG Heparin Sodium/ Dextrose 250 ml @ 8.46 mls/hr Q24H IV 08/31/24 03:30 UNV Furosemide 40 mg BIDD IV 08/31/24 18:00 09/02/24 06:04 40 MG Ceftriaxone Sodium 50 ml @ 100 mls/hr DAILY@09 IV 09/01/24 09:00 09/02/24 08:55 100 MLS/HR Azithromycin 250 ml @ 125 mls/hr DAILY IV 09/01/24 10:00 09/01/24 15:47 125 MLS/HR Albuterol 2.5 mg Q4HR NEB 08/31/24 14:00 09/02/24 08:41 2.5 MG Ipratropium [place] 0.5 mg Q4HR NEB 08/31/24 14:00 09/02/24 08:41 0.5 MG Acetaminophen/ Hydrocodone Bitart 1 tab Q4HP PRN PO 09/01/24 14:15 UNV Hydromorphone HCl 1 mg Q4HPRN PRN IV 09/01/24 14:15 UNV Carvedilol 12.5 mg Q12HR PO 09/01/24 22:00 09/02/24 08:58 12.5 MG Empaglifozin 10 mg DAILY PO 09/02/24 10:00 09/02/24 10:32 10 MG Aspirin 81 mg DAILY PO 09/02/24 10:00 09/02/24 09:00 81 MG Laboratory Results Laboratory Tests 09/02/24 06:29 Chemistry Test 09/02/24 06:29 Albumin 4.2 g/dL (3.2-4.8) Calcium Level 9.7 mg/dL (8.7-10.4) Total Protein 6.7 g/dL (5.7-8.2) LFT Test 09/02/24 06:29 Alanine Aminotransferase (ALT) 25 U/L (7-40) Alkaline Phosphatase 73 U/L (46-116) Aspartate Amino Transferase (AST) 44 U/L (13-40) H Total Bilirubin 1.0 mg/dL (0.2-1.0) Urinalysis Test 08/30/24 23:30 Urine Color Light-yellow (Yellow) Urine Clarity Clear (Clear) Urine pH 6.0 (5.0-9.0) Urine Specific [place] 1.008 (1.001-1.035) Urine Protein 1+ (Negative) H Urine Ketones Negative (Negative) Urine Blood Negative /uL (Negative) Urine Nitrite Negative (Negative) Urine Bilirubin Negative (Negative) Urine Urobilinogen Normal mg/dL (Negative) Urine Leukocyte Esterase Negative /uL (Negative) Urine RBC <1 /hpf (0 - 3) Urine Microscopic WBC 2 /HPF (0-3) Urine Squamous Epithelial Cells Few /hpf (<5) Urine Bacteria None seen /hpf (None Seen) Urine Hyaline Casts Few /lpf (0 - 2) Urine Glucose Trace mg/dL (Normal) Microbiology Microbiology Date/Time Source Procedure Growth Status 08/31/24 13:22 Blood Blood Culture - Preliminary NO GROWTH AFTER 24 HOURS OF INCUBATION. Resulted Labs and/or images reviewed: Labs reviewed by me, Image(s) reviewed by me Assessment/Plan Assessment/Plan Acute hypoxic respiratory failure: Oxygen by nasal cannula Non ST-elevation MD with a troponin of 1.4 K: Treatment per ACS protocol cardiology consult with Dr. Washington Status Post left heart catheterization by Dr. Washington 09/01/2024 : two-vessel coronary artery disease with successful PTCA and stenting of the RCA. Chronically occluded LAD. Distal collateralization. Reduced ejection fraction, cardiology planning for planned LAD procedure Decreased left ventricular ejection fraction, Jardiance Entresto Lasix Aldactone. Congestive heart failure exacerbation BNP 151: Ejection fraction 40% Lasix Uncontrolled diabetes: Insulin sliding scale Sepsis Secondary to pneumonia: Blood cultures negative Possible community-acquired pneumonia: Rocephin azithromycin Hypertension History of CVA Acute COPD exacerbation History of MD status post PTCA and stents 4 yrs ago History of smoking more than 30 years, quit one year back Chronic current alcohol abuse: Banana bag Rapid flu test negative COVID test negative Elevated D-dimer 1.66: DVT ruled out CT chest angiogram result pending Lipid panel normal TSH normal PCP Dr. Bernal Time spent 65 minutes Plan discussed with: Patient Date of Service: September 02, 2024 Billing Provider: WAN ALFONSO MD Common Visit Codes: [id number] CARE 30-74 MIN WAN ALFONSO MD September 02, 2024 11:09
[2024-09-02] MEDS: FOLIC ACID 1 MG, MAGNESIUM SULF SDV 50% 8 MEQ, MULTIPLE VITAMIN 10 ML, THIAMINE INJ 100... INJ SCH (20:05)
[2024-09-03] VITALS (23 sets, daily range): BP systolic 109–132; BP diastolic 71–90; PULSE 74–104; RESP 16–24; TEMP 97.4–98.4; O2SAT 92–100
[2024-09-03 06:33] LABS: Chloride 106 mmol/L (98-107); Potassium 4.2 mmol/L (3.5-5.1); Sodium 140 mmol/L (136-145)
[2024-09-03 06:34] LABS: Anion Gap 7 (5-15); Calcium 9.8 mg/dL (8.7-10.4); Carbon Dioxide 27 mmol/L (20-31)
[2024-09-03 06:39] LABS: BUN/Creatinine Ratio 18.7 (10.0-20.0); Blood Urea Nitrogen 14 mg/dL (9-23); Glucose 104 mg/dL (74-106)
--- NOTE | 2024-09-03 13:12 | DVHPN2 ---
Reviewed: Care Plan, H&P, Labs, Medications, Previous Orders, Radiology Changes from previous H/P or p: No Changes Objective Vitals Vital Signs Date Time Temp Pulse Resp B/P (MAP) Pulse Ox O2 Delivery O2 Flow Rate FiO2 09/03/24 10:30 97 Nasal Cannula 5.0 09/03/24 10:30 40 09/03/24 10:16 77 18 09/03/24 09:00 97.4 132/87 (102) 97.4 Intake/Output Intake and Output 09/03/24 07:00 Intake Total 3551.2 ml Output Total 2300 ml Balance 1251.2 ml Intake Oral 2538 ml IV Total 1013.2 ml Output Urine Total 2300 ml Medications Current Medications Medications Dose Ordered Sig/Danay Route Start Time Stop Time Status Last Admin Dose Admin Atorvastatin Calcium 40 mg HS PO 08/31/24 22:00 09/02/24 22:22 40 MG Clopidogrel Bisulfate 75 mg DAILY PO 08/31/24 10:00 09/03/24 08:21 75 MG Sacubitril/ Valsartan 1 tab BID PO 08/31/24 10:00 09/03/24 08:22 1 TAB Spironolactone 25 mg DAILY PO 08/31/24 10:00 09/03/24 08:21 25 MG Diagnostic Test (Pha) 1 strip ACHS 08/31/24 07:00 09/03/24 05:50 1 STRIP Insulin Human Regular ACHS SC 08/31/24 07:00 09/02/24 11:18 4 UNITS Dextrose 50 ml UD PRN IV 08/30/24 22:30 Ondansetron HCl 4 mg Q4HP PRN IV 08/30/24 22:30 Acetaminophen 650 mg Q6HP PRN PO 08/30/24 22:30 08/31/24 09:38 650 MG Nitroglycerin 0.4 mg Q5MINP PRN SL 08/30/24 22:30 Morphine Sulfate 2 mg Q30M PRN IV 08/30/24 22:30 08/31/24 20:35 2 MG Heparin Sodium/ Dextrose 250 ml @ 8.46 mls/hr Q24H IV 08/31/24 03:30 UNV Furosemide 40 mg BIDD IV 08/31/24 18:00 09/02/24 06:04 40 MG Ceftriaxone Sodium 50 ml @ 100 mls/hr DAILY@09 IV 09/01/24 09:00 09/03/24 08:16 100 MLS/HR Azithromycin 250 ml @ 125 mls/hr DAILY IV 09/01/24 10:00 09/02/24 11:01 125 MLS/HR Albuterol 2.5 mg Q4HR NEB 08/31/24 14:00 09/03/24 10:06 2.5 MG Ipratropium [place] 0.5 mg Q4HR NEB 08/31/24 14:00 09/03/24 10:06 0.5 MG Acetaminophen/ Hydrocodone Bitart 1 tab Q4HP PRN PO 09/01/24 14:15 UNV Hydromorphone HCl 1 mg Q4HPRN PRN IV 09/01/24 14:15 UNV Carvedilol 12.5 mg Q12HR PO 09/01/24 22:00 09/03/24 08:21 12.5 MG Empaglifozin 10 mg DAILY PO 09/02/24 10:00 09/03/24 08:22 10 MG Aspirin 81 mg DAILY PO 09/02/24 10:00 09/03/24 08:21 81 MG Folic Acid 1 mg/ Magnesium Sulfate 8 meq/ Multivitamins 10 ml/Thiamine HCl 100 mg/Sodium Chloride 1,013.2 ml @ 126.247 mls/hr DAILY@1999 INJ 09/03/24 20:00 Laboratory Results Laboratory Tests 09/02/24 06:29 09/03/24 05:57 Chemistry Test 09/03/24 05:57 Calcium Level 9.8 mg/dL (8.7-10.4) Urinalysis Test 08/30/24 23:30 Urine Color Light-yellow (Yellow) Urine Clarity Clear (Clear) Urine pH 6.0 (5.0-9.0) Urine Specific [place] 1.008 (1.001-1.035) Urine Protein 1+ (Negative) H Urine Ketones Negative (Negative) Urine Blood Negative /uL (Negative) Urine Nitrite Negative (Negative) Urine Bilirubin Negative (Negative) Urine Urobilinogen Normal mg/dL (Negative) Urine Leukocyte Esterase Negative /uL (Negative) Urine RBC <1 /hpf (0 - 3) Urine Microscopic WBC 2 /HPF (0-3) Urine Squamous Epithelial Cells Few /hpf (<5) Urine Bacteria None seen /hpf (None Seen) Urine Hyaline Casts Few /lpf (0 - 2) Urine Glucose Trace mg/dL (Normal) Microbiology Microbiology Date/Time Source Procedure Growth Status 08/31/24 13:22 Blood Blood Culture - Preliminary NO GROWTH AFTER 48 HOURS OF INCUBATION. Resulted Labs and/or images reviewed: Labs reviewed by me, Image(s) reviewed by me Assessment/Plan Assessment/Plan Acute hypoxic respiratory failure: Oxygen by nasal cannula Non ST-elevation CT with a troponin of 1.4 K: Treatment per ACS protocol cardiology consult with Dr. Washington Status Post left heart catheterization by Dr. Washington 09/01/2024 : two-vessel coronary artery disease with successful PTCA and stenting of the RCA. Chronically occluded LAD. Distal collateralization. Reduced ejection fraction, cardiology planning for planned LAD procedure Decreased left ventricular ejection fraction, Jardiance Entresto Lasix Aldactone. Congestive heart failure exacerbation BNP 151: Ejection fraction 40% Lasix Uncontrolled diabetes: Insulin sliding scale Sepsis Secondary to pneumonia: Blood cultures negative Possible community-acquired pneumonia: Rocephin azithromycin Hypertension History of CVA Acute COPD exacerbation History of CT status post PTCA and stents 4 yrs ago History of smoking more than 30 years, quit one year back Chronic current alcohol abuse: Banana bag Rapid flu test negative COVID test negative Elevated D-dimer 1.66: DVT ruled out CT chest angiogram result pending Lipid panel normal TSH normal PCP Dr. Bernal Time spent 65 minutes Plan discussed with: Patient My Orders Orders - WAN ALFONSO MD Procedure Category Date Status Time Folic Acid... PHA 09/03/24 In Process 20:00 Date of Service: September 03, 2024 Billing Provider: WAN ALFONSO MD Common Visit Codes: [id number] CARE 30-74 MIN WAN ALFONSO MD September 03, 2024 13:12
--- NOTE | 2024-09-03 15:13 | DVH ---
CHEST RADIOGRAPH Indication: To check chest for abnormalities Technique: Single frontal view of the chest was obtained COMPARISON: XY CHEST PORTABLE on DOS: 08/30/24, XY CHEST PORTABLE on DOS: 12/25/23, CHEST XRAY 1 VIEW o n DOS: 08/20/21, CXR1 on DOS: 08/20/21, CHEST PORTABLE on DOS: 08/17/21 FINDINGS: Lines and Tubes: None Lungs: Clear Pleura: No effusion. No pneumothorax. Cardiomediastinal contours: Unremarkable Bones: Unremarkable IMPRESSION: No acute disease.
[2024-09-03] MEDS: FOLIC ACID 1 MG, MAGNESIUM SULF SDV 50% 8 MEQ, MULTIPLE VITAMIN 10 ML, THIAMINE INJ 100... INJ SCH (22:13)
[2024-09-04] VITALS (22 sets, daily range): BP systolic 103–117; BP diastolic 66–78; PULSE 76–89; RESP 14–24; TEMP 97.5–98.6; O2SAT 91–100
[2024-09-04 06:11] LABS: Basophils # (auto) 0 10 ^3/uL (0-0.2); Basophils % (auto) 0.6 % (0.0-2.0); Eosinophils # (auto) 0.2 10 ^3/uL (0-0.8); Eosinophils % (auto) 2.6 % (0.0-7.0); Hemoglobin 15.4 g/dL (13.5-17.5); Lymphocytes # (auto) 1.6 10 ^3/uL (0.4-5.4); Lymphocytes % (auto) 22.8 % (10.0-50.0); Mean Corpuscular Hemoglobin 31.7 pg (28.0-32.0); Mean Corpuscular Hgb Conc. 34.1 g/dL (32.0-36.0); Mean Corpuscular Volume 92.8 fL (80.0-100.0); Monocytes # (auto) 0.8 10 ^3/uL (0-1.3); Monocytes % (auto) 11.7 % (0.0-12.0); Neutrophils # (auto) 4.3 10 ^3/uL (1.6-8.6); Neutrophils % (auto) 62.3 % (37.0-80.0); Platelet Count (auto) 204 10^3/uL (140-450); Red Blood Cells 4.85 10^6/uL (4.5-5.90); Red Cell Distribution Width 13.3 % (11.8-14.3)
[2024-09-04 06:37] LABS: Alanine Aminotransferase 25 U/L (7-40); Albumin 4.1 g/dL (3.2-4.8); Alkaline Phosphatase 77 U/L (46-116); Chloride 107 mmol/L (98-107); Potassium 4.1 mmol/L (3.5-5.1); Total Protein 6.8 g/dL (5.7-8.2)
[2024-09-04 06:38] LABS: Aspartate Aminotransferase 32 U/L (13-40)
[2024-09-04 06:42] LABS: Carbon Dioxide 25 mmol/L (20-31)
[2024-09-04 06:43] LABS: Calcium 9.5 mg/dL (8.7-10.4)
[2024-09-04 06:47] LABS: Glucose 104 mg/dL (74-106)
[2024-09-04 06:50] LABS: Bilirubin, Total 0.8 mg/dL (0.2-1.0)
[2024-09-04 09:45] LABS: Anion Gap 8 (5-15); BUN/Creatinine Ratio 16.7 (10.0-20.0); Blood Urea Nitrogen 13 mg/dL (9-23); Sodium 140 mmol/L (136-145)
--- NOTE | 2024-09-04 14:25 | DVHPN2 ---
Reviewed: Care Plan, H&P, Labs, Medications, Previous Orders, Radiology Changes from previous H/P or p: No Changes Objective Vitals Vital Signs Date Time Temp Pulse Resp B/P (MAP) Pulse Ox O2 Delivery O2 Flow Rate FiO2 09/04/24 14:12 78 14 99 09/04/24 09:00 97.5 117/76 (90) 97.5 09/04/24 08:20 Nasal Cannula* 2 28 Intake/Output Intake and Output 09/04/24 07:00 Intake Total 3233.2 ml Output Total 2500 ml Balance 733.2 ml Intake Oral 1920 ml IV Total 1313.2 ml Output Urine Total 2500 ml # Voids 3 Medications Current Medications Medications Dose Ordered Sig/Danay Route Start Time Stop Time Status Last Admin Dose Admin Atorvastatin Calcium 40 mg HS PO 08/31/24 22:00 09/03/24 22:03 40 MG Clopidogrel Bisulfate 75 mg DAILY PO 08/31/24 10:00 09/04/24 08:49 75 MG Sacubitril/ Valsartan 1 tab BID PO 08/31/24 10:00 09/04/24 08:48 1 TAB Spironolactone 25 mg DAILY PO 08/31/24 10:00 09/04/24 08:49 25 MG Diagnostic Test (Pha) 1 strip ACHS 08/31/24 07:00 09/04/24 12:00 1 STRIP Insulin Human Regular ACHS SC 08/31/24 07:00 09/04/24 12:16 2 UNITS Dextrose 50 ml UD PRN IV 08/30/24 22:30 Ondansetron HCl 4 mg Q4HP PRN IV 08/30/24 22:30 Acetaminophen 650 mg Q6HP PRN PO 08/30/24 22:30 08/31/24 09:38 650 MG Nitroglycerin 0.4 mg Q5MINP PRN SL 08/30/24 22:30 Morphine Sulfate 2 mg Q30M PRN IV 08/30/24 22:30 08/31/24 20:35 2 MG Heparin Sodium/ Dextrose 250 ml @ 8.46 mls/hr Q24H IV 08/31/24 03:30 UNV Furosemide 40 mg BIDD IV 08/31/24 18:00 09/04/24 05:44 40 MG Ceftriaxone Sodium 50 ml @ 100 mls/hr DAILY@09 IV 09/01/24 09:00 09/04/24 08:48 100 MLS/HR Azithromycin 250 ml @ 125 mls/hr DAILY IV 09/01/24 10:00 09/04/24 10:22 125 MLS/HR Albuterol 2.5 mg Q4HR NEB 08/31/24 14:00 09/04/24 14:11 2.5 MG Ipratropium [place] 0.5 mg Q4HR NEB 08/31/24 14:00 09/04/24 14:11 0.5 MG Acetaminophen/ Hydrocodone Bitart 1 tab Q4HP PRN PO 09/01/24 14:15 UNV Hydromorphone HCl 1 mg Q4HPRN PRN IV 09/01/24 14:15 UNV Carvedilol 12.5 mg Q12HR PO 09/01/24 22:00 09/04/24 08:48 12.5 MG Empaglifozin 10 mg DAILY PO 09/02/24 10:00 09/04/24 08:49 10 MG Aspirin 81 mg DAILY PO 09/02/24 10:00 09/04/24 08:49 81 MG Folic Acid 1 mg/ Magnesium Sulfate 8 meq/ Multivitamins 10 ml/Thiamine HCl 100 mg/Sodium Chloride 1,013.2 ml @ 126.247 mls/hr DAILY@1999 INJ 09/03/24 20:00 09/03/24 22:13 126.247 MLS/HR Laboratory Results Laboratory Tests 09/04/24 05:35 Chemistry Test 09/04/24 05:35 Albumin 4.1 g/dL (3.2-4.8) Calcium Level 9.5 mg/dL (8.7-10.4) Total Protein 6.8 g/dL (5.7-8.2) LFT Test 09/04/24 05:35 Alanine Aminotransferase (ALT) 25 U/L (7-40) Alkaline Phosphatase 77 U/L (46-116) Aspartate Amino Transferase (AST) 32 U/L (13-40) Total Bilirubin 0.8 mg/dL (0.2-1.0) Urinalysis Test 08/30/24 23:30 Urine Color Light-yellow (Yellow) Urine Clarity Clear (Clear) Urine pH 6.0 (5.0-9.0) Urine Specific [place] 1.008 (1.001-1.035) Urine Protein 1+ (Negative) H Urine Ketones Negative (Negative) Urine Blood Negative /uL (Negative) Urine Nitrite Negative (Negative) Urine Bilirubin Negative (Negative) Urine Urobilinogen Normal mg/dL (Negative) Urine Leukocyte Esterase Negative /uL (Negative) Urine RBC <1 /hpf (0 - 3) Urine Microscopic WBC 2 /HPF (0-3) Urine Squamous Epithelial Cells Few /hpf (<5) Urine Bacteria None seen /hpf (None Seen) Urine Hyaline Casts Few /lpf (0 - 2) Urine Glucose Trace mg/dL (Normal) Microbiology Microbiology Date/Time Source Procedure Growth Status 08/31/24 13:22 Blood Blood Culture - Preliminary NO GROWTH AFTER 72 HOURS OF INCUBATION. Resulted Labs and/or images reviewed: Labs reviewed by me, Image(s) reviewed by me Assessment/Plan Assessment/Plan Acute hypoxic respiratory failure: Oxygen by nasal cannula Non ST-elevation [place] with a troponin of 1.4 K: Treatment per ACS protocol cardiology consult with Dr. Washington Status Post left heart catheterization by Dr. Washington 09/01/2024 : two-vessel coronary artery disease with successful PTCA and stenting of the RCA. Chronically occluded LAD. Distal collateralization. Reduced ejection fraction, cardiology planning for planned LAD procedure as an outpatient Decreased left ventricular ejection fraction, Jardiance Entresto Lasix Aldactone. Congestive heart failure exacerbation BNP 151: Ejection fraction 40% Lasix Uncontrolled diabetes: Insulin sliding scale Sepsis Secondary to pneumonia: Blood cultures negative Possible community-acquired pneumonia: Rocephin azithromycin Hypertension History of CVA Acute COPD exacerbation History of [place] status post PTCA and stents 4 yrs ago History of smoking more than 30 years, quit one year back Chronic current alcohol abuse: Banana bag Rapid flu test negative COVID test negative Elevated D-dimer 1.66: DVT ruled out PE ruled out Lipid panel normal TSH normal Patient is still complaining of shortness of breath Physical therapy ordered Possible discharge tomorrow Plan discussed with: Patient My Orders Orders - WAN ALFONSO MD Procedure Category Date Status Time Pt Request For Service PT 09/04/24 Logged 13:53 Date of Service: September 04, 2024 Billing Provider: WAN ALFONSO MD Common Visit Codes: [id number] INP/OBS CARE(HIGH) WAN ALFONSO MD September 04, 2024 14:25
[2024-09-04] MEDS: MAGNESIUM OXIDE 400 MG TAB PO ONE (22:39)
[2024-09-04] MEDS: THIAMINE HCL 100 MG TAB PO ONE (22:39)
[2024-09-04] MEDS: MULTIPLE VITAMIN TAB PO ONE (22:39)
[2024-09-04] MEDS: FOLIC ACID 1 MG TAB PO ONE (22:40)
[2024-09-05] VITALS (21 sets, daily range): BP systolic 99–118; BP diastolic 68–74; PULSE 75–91; RESP 16–20; TEMP 97.7–98.4; O2SAT 92–100
[2024-09-05] MEDS: FOLIC ACID 1 MG TAB PO SCH (09:32)
[2024-09-05] MEDS: MAGNESIUM OXIDE 400 MG TAB PO SCH (09:33)
[2024-09-05] MEDS: MULTIPLE VITAMIN TAB PO SCH (09:33)
[2024-09-05] MEDS: THIAMINE HCL 100 MG TAB PO SCH (09:34)
--- NOTE | 2024-09-05 11:22 | DVHDS2 ---
Discharge Summary Date of Admission Aug 30, 2024 at 22:26 Date of Discharge: September 05, 2024 Admitting Diagnosis Shortness of breath Wounds: Left heart catheterization Labs/Diagnostic Data: Laboratory Results Test 09/05/24 05:06 09/04/24 05:35 09/01/24 07:43 08/31/24 16:25 POC Glucose 109 mg/dl (70-106) White Blood Count 7.0 10^3/uL (4.4-10.8) Red Blood Count 4.85 10^6/uL (4.5-5.90) Hemoglobin 15.4 g/dL (13.5-17.5) Hematocrit 45.0 % (41.0-53.0) Mean Corpuscular Volume 92.8 fL (80.0-100.0) Mean Corpuscular Hemoglobin 31.7 pg (28.0-32.0) Mean Corpuscular Hemoglobin Concent 34.1 g/dL (32.0-36.0) Red Cell Distribution Width 13.3 % (11.8-14.3) Platelet Count 204 10^3/uL (140-450) Mean Platelet Volume 10.1 fL (6.9-10.8) Neutrophils (%) (Auto) 62.3 % (37.0-80.0) Lymphocytes (%) (Auto) 22.8 % (10.0-50.0) Monocytes (%) (Auto) 11.7 % (0.0-12.0) Eosinophils (%) (Auto) 2.6 % (0.0-7.0) Basophils (%) (Auto) 0.6 % (0.0-2.0) Neutrophils # (Auto) 4.3 10 ^3/uL (1.6-8.6) Lymphocytes # (Auto) 1.6 10 ^3/uL (0.4-5.4) Monocytes # (Auto) 0.8 10 ^3/uL (0-1.3) Eosinophils # (Auto) 0.2 10 ^3/uL (0-0.8) Basophils # (Auto) 0 10 ^3/uL (0-0.2) Nucleated Red Blood Cells 0.0 % Sodium Level 140 mmol/L (136-145) Potassium Level 4.1 mmol/L (3.5-5.1) Chloride Level 107 mmol/L (98-107) Carbon Dioxide Level 25 mmol/L (20-31) Anion Gap 8 (5-15) Blood Urea Nitrogen 13 mg/dL (9-23) Creatinine 0.78 mg/dL (0.700-1.30) Glomerular Filtration Rate Calc 99 mL/min (>90) BUN/Creatinine Ratio 16.7 (10.0-20.0) Serum Glucose 104 mg/dL (74-106) Calcium Level 9.5 mg/dL (8.7-10.4) Total Bilirubin 0.8 mg/dL (0.2-1.0) Aspartate Amino Transferase (AST) 32 U/L (13-40) Alanine Aminotransferase (ALT) 25 U/L (7-40) Alkaline Phosphatase 77 U/L (46-116) Total Protein 6.8 g/dL (5.7-8.2) Albumin 4.1 g/dL (3.2-4.8) Prothrombin Time 12.4 sec (9.3-11.8) Prothrombin Time INR 1.19 (0.9-1.15) Activated Partial Thromboplast Time 45.5 SEC (24.5-34.5) Troponin I High Sensitivity 7435 ng/L (</=54) Test 08/31/24 12:38 08/31/24 04:45 08/30/24 23:30 08/30/24 23:20 Influenza Type A Antigen Negative (Negative) Influenza Type B Antigen Negative (Negative) SARS-CoV-2 Antigen (Rapid) Negative (NEGATIVE) Triglycerides Level 122 mg/dL (< 150) Cholesterol Level 147 mg/dL (< 200) LDL Cholesterol 68 mg/dL (< 100) HDL Cholesterol 56 mg/dL (40-59) Thyroid Stimulating Hormone (TSH) 1.02 uIU/mL (0.55-4.78) Urine Color Light-yellow (Yellow) Urine Clarity Clear (Clear) Urine pH 6.0 (5.0-9.0) Urine Specific [place] 1.008 (1.001-1.035) Urine Protein 1+ (Negative) Urine Ketones Negative (Negative) Urine Blood Negative /uL (Negative) Urine Nitrite Negative (Negative) Urine Bilirubin Negative (Negative) Urine Urobilinogen Normal mg/dL (Negative) Urine Leukocyte Esterase Negative /uL (Negative) Urine RBC <1 /hpf (0 - 3) Urine Microscopic WBC 2 /HPF (0-3) Urine Squamous Epithelial Cells Few /hpf (<5) Urine Bacteria None seen /hpf (None Seen) Urine Hyaline Casts Few /lpf (0 - 2) Urine Glucose Trace mg/dL (Normal) D-Dimer, Quantitative 1.66 mg/L FEU (0.0-0.49) Test 08/30/24 20:35 B-Type Natriuretic Peptide 751.51 pg/mL (0-100) Other Laboratory Tests 09/04/24 05:35 Brief Hx & Hospital Course: 64-year-old male with a chronic current smoking history alcohol abuse COPD diabetes hypotension history of [place] status post stents four years ago came in complaining of shortness of breath. Found to have community-acquired pneumonia with Rocephin and azithromycin. Flu test negative COVID test negative D-dimer elevated 1.66 DVT ruled out PE ruled out TSH normal lipid panel normal. The patient has elevated troponin of 1.4 K underwent left heart catheterization by Dr. Washington for 225 with a stenting of LAD and RCA ejection fraction 40 percent. Cardiology planning for staged LAD procedure as an outpatient. He was an appointment with Dr. Washington on 09/15/2024 at 11:00 a.m. patient was placed on Jardiance Entresto Lasix and Aldactone for his systolic congestive heart failure. The patient improved. Received physical therapy. Being discharged care home facility for cardiac rehab for two weeks of IV antibiotics for pneumonia. Consults/Reason for consult Cardiology Dr. Washington Operations or Procedures Left heart catheterization with stenting of LAD and RCA Condition at Discharge: Fair Final Diagnosis/Problems List Acute hypoxic respiratory failure: Oxygen by nasal cannula Non ST-elevation [place] with a troponin of 1.4 K: Treatment per ACS protocol cardiology consult with Dr. Washington Status Post left heart catheterization by Dr. Washington 09/01/2024 : two-vessel coronary artery disease with successful PTCA and stenting of the RCA. Chronically occluded LAD. Distal collateralization. Reduced ejection fraction, cardiology planning for planned LAD procedure as an outpatient Decreased left ventricular ejection fraction, Jardiance Entresto Lasix Aldactone. Congestive heart failure exacerbation BNP 151: Ejection fraction 40% Lasix Uncontrolled diabetes: Insulin sliding scale Sepsis Secondary to pneumonia: Blood cultures negative Possible community-acquired pneumonia: Rocephin azithromycin Hypertension History of CVA Acute COPD exacerbation History of [place] status post PTCA and stents 4 yrs ago History of smoking more than 30 years, quit one year back Chronic current alcohol abuse: Banana bag Rapid flu test negative COVID test negative Elevated D-dimer 1.66: DVT ruled out PE ruled out Lipid panel normal TSH normal Discharge Disposition: Half-Way Facility Discharge Instruct/Medications Diet: Cardiac 2g Na,low cholest Activity: Light activity Follow Up/Referral: Follow up with the retirement Dr Follow up with the Cardiology Dr Washington on 09-15-24 at 11 AM at [facility] office Medications: see list 39 (Time taken for discharge summary 39 minutes) Discharge Statement: "Patient was advised to return to the ER or call 911 if any headaches, dizziness, shortness of breath, chest pain, abdominal pain, bleeding, fevers, or worsening of medical condition. Patient was counseled about treatment plan, medications, possible side effects, patientverbalized understanding. All questions were answered to the best of my ability. This discharge took greater then 30 minutes in planning, reviewing documentation, counseling the patient, and discussing with other team members." ASSESSMENT ASSESSMENT Hospital Course Improved marginally Assessment Acute hypoxic respiratory failure: Oxygen by nasal cannula Non ST-elevation [place] with a troponin of 1.4 K: Treatment per ACS protocol cardiology consult with Dr. Washington Status Post left heart catheterization by Dr. Washington 09/01/2024 : two-vessel coronary artery disease with successful PTCA and stenting of the RCA. Chronically occluded LAD. Distal collateralization. Reduced ejection fraction, cardiology planning for planned LAD procedure as an outpatient Decreased left ventricular ejection fraction, Jardiance Entresto Lasix Aldactone. Congestive heart failure exacerbation BNP 151: Ejection fraction 40% Lasix Uncontrolled diabetes: Insulin sliding scale Sepsis Secondary to pneumonia: Blood cultures negative Possible community-acquired pneumonia: Rocephin azithromycin Hypertension History of CVA Acute COPD exacerbation History of [place] status post PTCA and stents 4 yrs ago History of smoking more than 30 years, quit one year back Chronic current alcohol abuse: Banana bag Rapid flu test negative COVID test negative Elevated D-dimer 1.66: DVT ruled out PE ruled out Lipid panel normal TSH normal Date of Service: September 05, 2024 Billing Provider: WAN ALFONSO MD Common Visit Codes: [id number] DISCH DAY >30min WAN ALFONSO MD September 05, 2024 11:22
[2024-09-06] VITALS (24 sets, daily range): BP systolic 98–136; BP diastolic 57–88; PULSE 65–87; RESP 16–20; TEMP 36.7; O2SAT 91–100
[2024-09-07 05:00] VITALS: BP 102/59; PULSE 62; RESP 17; TEMP 98.7; O2SAT 100
[2024-09-07 06:36] VITALS: PULSE 80; RESP 18; O2SAT 96
[2024-09-07 06:46] VITALS: PULSE 79; RESP 18; O2SAT 99
[2024-09-07 08:41] VITALS: BP 95/66; PULSE 81; RESP 18; TEMP 97.9; O2SAT 94
[2024-09-07 10:00] VITALS: O2SAT 95
--- NOTE | 2024-09-07 12:13 | DVHPN2 ---
Reviewed: Care Plan, H&P, Labs, Medications, Previous Orders, Radiology Changes from previous H/P or p: No Changes Objective Vitals Vital Signs Date Time Temp Pulse Resp B/P (MAP) Pulse Ox O2 Delivery O2 Flow Rate FiO2 09/07/24 10:56 80 95/57 09/07/24 08:41 97.9 18 94 97.9 09/07/24 07:46 Room Air* 0 21 Intake/Output Intake and Output 09/07/24 07:00 Intake Total 2050 ml Balance 2050 ml Intake Oral 2050 ml # Voids 11 Medications Current Medications Medications Dose Ordered Sig/Danay Route Start Time Stop Time Status Last Admin Dose Admin Atorvastatin Calcium 40 mg HS PO 08/31/24 22:00 09/06/24 22:39 40 MG Clopidogrel Bisulfate 75 mg DAILY PO 08/31/24 10:00 09/07/24 11:09 75 MG Sacubitril/ Valsartan 1 tab BID PO 08/31/24 10:00 09/06/24 22:39 1 TAB Spironolactone 25 mg DAILY PO 08/31/24 10:00 09/06/24 10:13 25 MG Diagnostic Test (Pha) 1 strip ACHS 08/31/24 07:00 09/07/24 06:22 1 STRIP Insulin Human Regular ACHS SC 08/31/24 07:00 09/06/24 22:49 2 UNITS Dextrose 50 ml UD PRN IV 08/30/24 22:30 Ondansetron HCl 4 mg Q4HP PRN IV 08/30/24 22:30 Acetaminophen 650 mg Q6HP PRN PO 08/30/24 22:30 09/06/24 10:07 650 MG Nitroglycerin 0.4 mg Q5MINP PRN SL 08/30/24 22:30 Morphine Sulfate 2 mg Q30M PRN IV 08/30/24 22:30 08/31/24 20:35 2 MG Heparin Sodium/ Dextrose 250 ml @ 8.46 mls/hr Q24H IV 08/31/24 03:30 UNV Furosemide 40 mg BIDD IV 08/31/24 18:00 09/06/24 18:00 40 MG Ceftriaxone Sodium 50 ml @ 100 mls/hr DAILY@09 IV 09/01/24 09:00 09/07/24 10:39 100 MLS/HR Azithromycin 250 ml @ 125 mls/hr DAILY IV 09/01/24 10:00 09/07/24 10:00 125 MLS/HR Albuterol 2.5 mg Q4HR NEB 08/31/24 14:00 09/07/24 06:36 2.5 MG Ipratropium [place] 0.5 mg Q4HR NEB 08/31/24 14:00 09/07/24 06:36 0.5 MG Acetaminophen/ Hydrocodone Bitart 1 tab Q4HP PRN PO 09/01/24 14:15 UNV Hydromorphone HCl 1 mg Q4HPRN PRN IV 09/01/24 14:15 UNV Carvedilol 12.5 mg Q12HR PO 09/01/24 22:00 09/07/24 10:56 12.5 MG Empaglifozin 10 mg DAILY PO 09/02/24 10:00 09/07/24 11:01 10 MG Aspirin 81 mg DAILY PO 09/02/24 10:00 09/07/24 11:08 81 MG Folic Acid 1 mg DAILY PO 09/05/24 10:00 09/07/24 11:10 1 MG Multivitamins 1 tab DAILY PO 09/05/24 10:00 09/07/24 11:10 1 TAB Magnesium Oxide 400 mg DAILY PO 09/05/24 10:00 09/07/24 11:09 400 MG Thiamine HCl 100 mg DAILY PO 09/05/24 10:00 09/07/24 11:10 100 MG Laboratory Results Laboratory Tests 09/04/24 05:35 Urinalysis Test 08/30/24 23:30 Urine Color Light-yellow (Yellow) Urine Clarity Clear (Clear) Urine pH 6.0 (5.0-9.0) Urine Specific [place] 1.008 (1.001-1.035) Urine Protein 1+ (Negative) H Urine Ketones Negative (Negative) Urine Blood Negative /uL (Negative) Urine Nitrite Negative (Negative) Urine Bilirubin Negative (Negative) Urine Urobilinogen Normal mg/dL (Negative) Urine Leukocyte Esterase Negative /uL (Negative) Urine RBC <1 /hpf (0 - 3) Urine Microscopic WBC 2 /HPF (0-3) Urine Squamous Epithelial Cells Few /hpf (<5) Urine Bacteria None seen /hpf (None Seen) Urine Hyaline Casts Few /lpf (0 - 2) Urine Glucose Trace mg/dL (Normal) Microbiology Microbiology Date/Time Source Procedure Growth Status 08/31/24 13:22 Blood Blood Culture - Final NO GROWTH AFTER 5 DAYS OF INCUBATION. Complete Labs and/or images reviewed: Labs reviewed by me, Image(s) reviewed by me Assessment/Plan Assessment/Plan Acute hypoxic respiratory failure: Oxygen by nasal cannula Non ST-elevation [place] with a troponin of 1.4 K: Treatment per ACS protocol cardiology consult with Dr. Washington Status Post left heart catheterization by Dr. Washington 09/01/2024 : two-vessel coronary artery disease with successful PTCA and stenting of the RCA. Chronically occluded LAD. Distal collateralization. Reduced ejection fraction, cardiology planning for planned LAD procedure as an outpatient Decreased left ventricular ejection fraction, Jardiance Entresto Lasix Aldactone. Congestive heart failure exacerbation BNP 151: Ejection fraction 40% Lasix Uncontrolled diabetes: Insulin sliding scale Sepsis Secondary to pneumonia: Blood cultures negative Possible community-acquired pneumonia: Rocephin azithromycin Hypertension History of CVA Acute COPD exacerbation History of [place] status post PTCA and stents 4 yrs ago History of smoking more than 30 years, quit one year back Chronic current alcohol abuse: Banana bag Rapid flu test negative COVID test negative Elevated D-dimer 1.66: DVT ruled out PE ruled out Lipid panel normal TSH normal Patient discharged home on home health on 09/06/2024 director of therapy services arranged the infusion services and home health Patient will be going home today after IV antibiotics Plan discussed with: Patient Date of Service: September 07, 2024 Billing Provider: WAN ALFONSO MD Common Visit Codes: [id number] INP/OBS CARE(HIGH) WAN ALFONSO MD September 07, 2024 12:13
[2024-09-07 13:00] VITALS: BP 95/57; PULSE 80; RESP 18; TEMP 97.2; O2SAT 100
== END 2024-09-07 15:38 | disposition home health service (06) | DRG 853 ==
LOC: EDBD 20:08 → ER 20:08 → OVERFLOW 22:26 → TELE-WESTW 08-31 03:18
PROVIDERS: ADMIT Family Medicine; ATTEND Family Medicine
PROC: 027036Z Dilation of Coronary Artery, One Artery with Three Drug-eluting Intraluminal Devices, Percutaneous Approach (ICD-10-PCS; principal; 2024-09-01)
PROC: 4A023N7 Measurement of Cardiac Sampling and Pressure, Left Heart, Percutaneous Approach (ICD-10-PCS; 2024-09-01)
PROC: B211YZZ Fluoroscopy of Multiple Coronary Arteries using Other Contrast (ICD-10-PCS; 2024-09-01)
PROC: B215YZZ Fluoroscopy of Left Heart using Other Contrast (ICD-10-PCS; 2024-09-01)
PROC: 05H933Z Insertion of Infusion Device into Right Brachial Vein, Percutaneous Approach (ICD-10-PCS; 2024-09-05)
PROC: B54MZZA Ultrasonography of Right Upper Extremity Veins, Guidance (ICD-10-PCS; 2024-09-05)
DX: A41.59 Other Gram-negative sepsis (principal); I21.4 Non-ST elevation (NSTEMI) myocardial infarction; I50.23 Acute on chronic systolic (congestive) heart failure; J96.01 Acute respiratory failure with hypoxia; J15.69 Pneumonia due to other Gram-negative bacteria; J15.9 Unspecified bacterial pneumonia; J44.1 Chronic obstructive pulmonary disease with (acute) exacerbation; J44.0 Chronic obstructive pulmonary disease with (acute) lower respiratory infection; E11.65 Type 2 diabetes mellitus with hyperglycemia; Z20.822 Contact with and (suspected) exposure to COVID-19; I11.0 Hypertensive heart disease with heart failure; I25.10 Atherosclerotic heart disease of native coronary artery without angina pectoris; I25.5 Ischemic cardiomyopathy; E78.5 Hyperlipidemia, unspecified; F41.9 Anxiety disorder, unspecified; F10.10 Alcohol abuse, uncomplicated; F17.210 Nicotine dependence, cigarettes, uncomplicated; Z86.73 Personal history of transient ischemic attack (TIA), and cerebral infarction without residual deficits; Z83.3 Family history of diabetes mellitus; Z82.49 Family history of ischemic heart disease and other diseases of the circulatory system; Z79.2 Long term (current) use of antibiotics; Z79.84 Long term (current) use of oral hypoglycemic drugs; Z79.82 Long term (current) use of aspirin; Z95.5 Presence of coronary angioplasty implant and graft; Y90.9 Presence of alcohol in blood, level not specified
CPT/HCPCS: 36415; 71045; 71275; 80048; 80053; 80061; 81001; 82962; 83880; 84443; 84484; 85025; 85379; 85610; 85730; 87040; 87426; 87804; 92941; 93005; 93306; 93458; 93970; 94640; 96374; 97163; 99152; 99291; C1874; G0378; J1815; J2250; Q9967